=== PATIENT | female | born 1970 | race African-American/Black ===

== ENCOUNTER 2017-05-09 10:38 | Inpatient (IN) | payer OTHER ==
[2017-05-09 11:14] VITALS: BMI 16.5
--- NOTE | 2017-05-09 12:40 | HP ---
COWS - Scale Resting Pulse: 0= [place] 80 or Below Sweatin=Flushed/Facial Moisture Restless Observation: 3= Extraneous Movement Pupil Size: 2= Moderately Dilated Bone or Joint Aches: 2= Severe Diffuse Aches Runny Nose/ Eye Tearin= Runny Nose/Eyes GI Upset > 30mins: 3= Vomiting/Diarrhea Tremor Observation: 2= Slight Tremor Visible Yawning Observation: 2= >3x During Session Anxiety or Irritability: 2=Irritable/Anxious Goose Flesh Skin: 0=Smooth Skin COWS Score: 20 Admission ROS S - HPI Chief Complaint: I AM HERE TO STOP USING HEROIN AND COCAINE Allergies/Adverse Reactions: Allergies Allergy/AdvReac Type Severity Reaction Status Date / Time No Known Allergies Allergy Verified 05/09/17 11:53 History of Present Illness: THIS 47 YEARS OLD FEMALE WITH HEROIN AMD COCAINE DEPENDENCE,SEEKING DETOX,LAST TREATMENT 05/13/16 TO 05/14/16 WEIGHT LOSS ANXIETY,DEPRESSION,INSOMNIA LONGEST SOBRIETY 3 YEARS NICOTINE DEPENDENCE Exam Limitations: No Limitations - Ebola screening Have you traveled outside of the country in the last 21 days: No Have you had contact with anyone from an Ebola affected area: No Have you been sick,other than usual withdrawal symptoms: No Do you have a fever: No - Review of Systems Constitutional: Chills, Loss of Appetite, Malaise, Night Sweats, Changes in sleep, Weakness, Unintentional Wgt. Loss EENT: reports: Tearing, Nose Congestion Respiratory: reports: Other (ASTHMA) Cardiac: reports: No Symptoms Reported GI: reports: Diarrhea, Nausea, Vomiting, Abdominal cramping : reports: No Symptoms Reported Musculoskeletal: reports: Back Pain, Joint Pain, Muscle Pain, Neck Pain Integumentary: reports: Dryness Neuro: reports: Headache, Tremors Endocrine: reports: No Symptoms Reported Hematology: reports: No Symptoms Reported Psychiatric: reports: No Sypmtoms Reported, Judgement Intact, Mood/Affect Appropiate, Anxious (INSOMNIA), Depressed Patient History - Patient Medical History Hx Anemia: Yes (feso4) Hx Asthma: Yes (Pt is on MDI) Hx Chronic Obstructive Pulmonary Disease (COPD): No Hx Cancer: No Hx Cardiac Disorders: Yes (weak heart) Hx Congestive Heart Failure: No Hx Hypertension: Yes Hx Hypercholesterolemia: Yes Hx Pacemaker: No HX Cerebrovascular Accident: Yes (2008 2nd head trauma ) Hx Seizures: Yes (seizure disorder last seizure was 2016) Hx Dementia: No Hx Diabetes: No Hx Gastrointestinal Disorders: No Hx Genitourinary Disorders: No Hx Sexually Transmitted Disorders: No Hx Renal Disease (ESRD): No Hx Thyroid Disease: No Hx Human Immunodeficiency Virus (HIV): No Hx Hepatitis C: No Hx Depression: Yes (ANXIETY) Hx Suicide Attempt: Yes (CUT WRIST) Hx Bipolar Disorder: Yes Hx Schizophrenia: No Other Medical History: NO SUICIDAL,NO HOMICIDAL - Patient Surgical History Past Surgical History: No Hx Neurologic Surgery: No Hx Cataract Extraction: No Hx Cardiac Surgery: No Hx Lung Surgery: No Hx Breast Surgery: No Hx Breast Biopsy: No Hx Abdominal Surgery: No Hx Appendectomy: No Hx Cholecystectomy: No Hx Genitourinary Surgery: No Hx Section: Yes (X 2,LAST 8 YEARS) Hx Orthopedic Surgery: No Anesthesia Reaction: No - PPD History Previous Implant?: Yes Documented Results: Negative w/proof Date: 06/03/16 PPD to be Administered?: Yes - Reproductive History Patient is a Female of Child Bearing Age (11 -55 yrs old): Yes Last Menstrual Period: 10/13/16 Patient : No - Smoking Cessation Smoking history: Current every day smoker Have you smoked in the past 12 months: Yes Aproximately how many cigarettes per day: 10 Cigars Per Day: 0 Hx Chewing Tobacco Use: No Initiated information on smoking cessation: Yes 'Breaking Loose' booklet given: 05/09/17 - Substance & Tx. History Hx Alcohol Use: No Hx Substance Use: Yes Substance Use Type: Cocaine, Heroin Hx Substance Use Treatment: Yes (05/13/16 TO 05/14/16 [facility] NOT COMPLETED) - Substances Abused Heroin Route: Inhalation Frequency: Daily Amount used: 10 bags Age of first use: 17 Date of Last Use: 05/09/17 Cocaine Route: Smoking Frequency: 1-2 times per week Amount used: 50$ Age of first use: 24 Date of Last Use: 05/08/17 Family Disease History - Family Disease History Family Disease History: Diabetes: Mother (ALCOHOL), Other: Father (ALCOHL, ) Admission Physical Exam BHS - Vital Signs Vital Signs: Vital Signs - 24 hr 05/09/17 11:10 Temperature 96 F L Pulse Rate 70 Respiratory 20 Rate Blood Pressure 117/70 - Physical General Appearance: Yes: Moderate Distress, Severe Distress, Alcohol on Breath, Intoxicated, Tremorous, Irritable, Sweating HEENTM: Yes: Normal ENT Inspection, [place], Pharynx Normal Respiratory: Yes: Lungs Clear, Normal Breath Sounds, No Respiratory Distress Neck: Yes: Within Normal Limits, No masses,lesions,Nodules, Supple Breast: Yes: Breast Exam Deferred Cardiology: Yes: Within Normal Limits, Regular Rhythm, Regular Rate, S1, S2 Abdominal: Yes: Within Normal Limits, Normal Bowel Sounds, Non Tender, Flat, Soft Genitourinary: Yes: Within Normal Limits Back: Yes: Within Normal Limits, Normal Inspection, Muscle Spasm Musculoskeletal: Yes: full range of Motion, Back pain, Joint Stiffness, Muscle Pain Extremities: Yes: Tremors Neurological: Yes: Within Normal Limits, annealer II-XII NML intact, Fully Oriented, Alert, Motor Strength 5/5 Integumentary: Yes: Dry Lymphatic: Yes: Within Normal Limits - Diagnostic (1) Asthma Current Visit: No Status: Chronic Qualifiers: Asthma severity: mild intermittent (2) Cocaine abuse Current Visit: No Status: Chronic (3) Nicotine dependence Current Visit: No Status: Chronic (4) Opioid dependence with withdrawal Current Visit: No Status: Chronic (5) Bipolar disorder Current Visit: No Status: Suspected Comment: Historical diagnosis. (6) Weight loss Current Visit: Yes Status: Acute (7) Seizure Current Visit: Yes Status: Acute (8) Old cerebrovascular accident (CVA) without late effect Current Visit: Yes Status: Acute Cleared for Admission [facility] - Detox or Rehab [facility] Level of Care: Medically Managed Detox Regimen/Protocol: Methadone [facility] Breath Alcohol Content Breath Alcohol Content: 0 Urine Pregancy Test - Result Urine Test Results: Negative- NO Line Present Urine Drug Screen - Results Drug Screen Negative: No Urine Drug Screen Results: JEANIE-Cocaine, OPI-Opiates
[2017-05-09] MEDS ORDERED: guaiFENesin/D-METHORPHAN HB 10 ML UNIT-DOSE CUPS PO PRN (12:55)
[2017-05-09] MEDS ORDERED: MAGNESIUM CITRATE 300 ML BOTTLE PO PRN (12:55)
[2017-05-09] MEDS ORDERED: MENTHOL/PHENOL 1 EACH UD MM PRN (12:55)
[2017-05-09] MEDS ORDERED: LOPERAMIDE HCL 2 MG CAPSULE PO PRN (12:55)
[2017-05-09] MEDS ORDERED: hydrOXYzine PAMOATE 25 MG CAPSULE (FP) PO PRN (12:55)
[2017-05-09] MEDS ORDERED: MAGNESIUM HYDROX 2400MG/30ML ORAL SUSPENSION 30 ML CUP PO PRN (12:55)
[2017-05-09] MEDS ORDERED: MAG HYDROX/AL HYDROX/SIMETH 30 ML UNIT-DOSE CUP PO PRN (12:55)
[2017-05-09] MEDS ORDERED: diazePAM 5 MG TABLET PO PRN (12:55)
[2017-05-09] MEDS ORDERED: P-EPHED 60MG/TRIPROLIDI 2.5MG TABLET PO PRN (12:55)
[2017-05-09] MEDS ORDERED: METHADONE HCL 10 MG TABLET (FOR DETOX USE ONLY) PO ONE ×2 (12:55→23:00)
[2017-05-09] MEDS ORDERED: ALBUTEROL SO4 6.7 GM HFA INHALER IH PRN (12:58)
[2017-05-09] MEDS ORDERED: ONDANSETRON *ODT* 4 MG TABLET SL PRN (14:58)
[2017-05-09] MEDS: FERROUS SO4 325 MG TABLET (FP) PO SCH (17:45)
[2017-05-09 21:22] LABS: URINE APPEARANCE CLOUDY; URINE BILIRUBIN NEGATIVE (NEGATIVE); URINE BLOOD NEGATIVE (NEGATIVE); URINE COLOR AMBER; URINE GLUCOSE (UA) NEGATIVE (NEGATIVE); URINE KETONE NEGATIVE (NEGATIVE); URINE LEUK ESTERASE NEGATIVE (NEGATIVE); URINE NITRITE NEGATIVE (NEGATIVE); URINE PROTEIN 1+ (NEGATIVE)
[2017-05-09 21:49] LABS: URINE BACTERIA FEW /hpf (NONE SEEN); URINE MUCUS MANY; URINE RBC 6 /hpf (0-3); URINE WBC 7 /hpf (3-5)
[2017-05-09] MEDS: levETIRAcetam 250 MG TABLET (FP) PO SCH (22:20)
[2017-05-09] MEDS: diphenhydrAMINE HCL 50 MG CAPSULE PO PRN (22:21)
[2017-05-09] MEDS: THIAMINE HCL 100 MG TABLET (FP) PO SCH (23:14)
[2017-05-10] MEDS: IBUPROFEN 400 MG TABLET (FP) PO PRN ×2 (05:50→22:21)
[2017-05-10] MEDS: FERROUS SO4 325 MG TABLET (FP) PO SCH ×3 (07:46→17:30)
[2017-05-10] MEDS ORDERED: DIVALPROEX NA *ER* EXTEND REL 500 MG TABLET.SA (FP) PO ONE (08:45)
--- NOTE | 2017-05-10 09:45 | CONSULT ---
[facility] Psychiatric Consult - Data Date of interview: 05/10/17 Admission source: [facility] Identifying data: This is 47 years old female with psychiatgric hospitalization history , intoxicated with: Opioids, Cocaine, Xanax, Nicotine, history of Alcohol abuse as welol Substance Abuse History: - Smoking Cessation. Smoking history: Current every day smoker. Have you smoked in the past 12 months: Yes. Aproximately how many cigarettes per day: 10. Cigars Per Day: 0. Hx Chewing Tobacco Use: No. Initiated information on smoking cessation: Yes. 'Breaking Loose' booklet given : 05/09/17. - Substance & Tx. History. Hx Alcohol Use: No. Hx Substance Use: Yes. Substance Use Type: Cocaine, Heroin. Hx Substance Use Treatment: Yes ( TO 05/14/16 [facility] NOT COMPLETED). - Substances Abused. Heroin. Route : Inhalation. Frequency: Daily. Amount used: 10 bags. Age of first use: 17. Date of Last Use: 05/09/17. Cocaine. Route: Smoking. Frequency: 1-2 times per week. Amount used: 50$. Age of first use: 24. Date of Last Use: 05/08/17 Medical History: Old CVA, Seizure history, Weight loss hisatyory, Asthma Hyperliupidemia Psychiatric History: Patient reprots history of Bipolar disorder with most recent psychiatric admission for safety at [facility] on 2014,. reports currently taking: Seroquel 400mg po qhs. Depakote XR 500mg p[oqd Physical/Sexual Abuse/Trauma History: Denies, Unclear Additional Comment: Seroquel 400mg po qhs. Depakote XR 500mg p[oqd Mental Status Exam - Mental Status Exam Alert and Oriented to: Person Cognitive Function: Fair Patient Appearance: Unkempt Mood: Sad Affect: Flat Patient Behavior: Sedated Speech Pattern: Delayed, Excessive Voice Loudness: Normal Thought Process: Circumstantial Thought Disorder: Being Controlled Hallucinations: Denies Suicidal Ideation: Denies Homicidal Ideation: Denies Insight/Judgement: Fair Sleep: Difficulty falling asleep Appetite: Weight loss Muscle strength/Tone: Mild Hypertonicity Gait/Station: Shuffling Additional Comments: Seroquel 400mg po qhs. Depakote XR 500mg p[oqd Psychiatric Findings - Problem List ([place] 1, 2,3) (1) Weight loss Current Visit: Yes Status: Acute (2) Benzodiazepine abuse Current Visit: No Status: Acute (3) Nicotine abuse Current Visit: No Status: Acute (4) Alcohol dependence with uncomplicated withdrawal Current Visit: No Status: Chronic (5) Bipolar 1 disorder Current Visit: No Status: Chronic (6) Cocaine abuse Current Visit: No Status: Chronic (7) Nicotine dependence Current Visit: No Status: Chronic (8) Opioid dependence with withdrawal Current Visit: No Status: Chronic - Initial Treatment Plan Initial Treatment Plan: Seroquel 300mg po qhs. Depakote XR 500mg p[oqd
[2017-05-10] MEDS ORDERED: METHADONE HCL 10 MG TABLET (FOR DETOX USE ONLY) PO ONE (10:00)
[2017-05-10] MEDS ORDERED: ALBUTEROL SO4 2.5/IPRATROPIUM 0.5 INH SOL 3 ML VIAL.NEB. NEB PRN (10:00)
--- NOTE | 2017-05-10 10:03 | PN ---
BHS COWS - Scale Resting Pulse: 0= [place] 80 or Below Sweatin= Chills/Flushing Restless Observation: 3= Extraneous Movement Pupil Size: 1= Pupils >than Normal Bone or Joint Aches: 2= Severe Diffuse Aches Runny Nose/ Eye Tearin= Runny Nose/Eyes GI Upset > 30mins: 2= Nausea/Diarrhea Tremor Observation of Outstretched Hands: 2= Slight Tremor Visible Yawning Observation: 1= 1-2x During Session Anxiety or Irritability: 2=Irritable/Anxious Goose Flesh Skin: 0=Smooth Skin COWS Score: 16 S Progress Note (SOAP) Subjective: ALERT,IRRITABLE,ANXIOUS,INTERRUPTED SLEEP,PAIN IN THE BODY AND BACK,EXPIRATORY WHEEZING Objective: 05/10/17 10:01 Vital Signs Temperature 97.7 F 05/10/17 06:35 Pulse Rate 76 05/10/17 06:35 Respiratory Rate 20 05/10/17 06:35 Blood Pressure 147/88 05/10/17 06:35 O2 Sat by Pulse Oximetry (%) EKG NSR,LVH NO CHEST PAIN,NO SOB,NO DIZZINESS Laboratory Last Values Urine Color Vesta 05/09/17 15:23 Urine Appearance Cloudy 05/09/17 15:23 Urine pH 5.0 (5.0-8.0) 05/09/17 15:23 Urine Protein 1+ (NEGATIVE) H 05/09/17 15:23 Urine Glucose (UA) Negative (NEGATIVE) 05/09/17 15:23 Urine Ketones Negative (NEGATIVE) 05/09/17 15:23 Urine Blood Negative (NEGATIVE) 05/09/17 15:23 Urine Nitrite Negative (NEGATIVE) 05/09/17 15:23 Urine Bilirubin Negative (NEGATIVE) 05/09/17 15:23 Urine Urobilinogen 2.0 mg/dL (0.2-1.0) H 05/09/17 15:23 Urine RBC 6 /hpf (0-3) 05/09/17 15:23 Urine WBC 7 /hpf (3-5) 05/09/17 15:23 Ur Epithelial Cells Many /hpf (FEW) 05/09/17 15:23 Urine Bacteria Few /hpf (NONE SEEN) 05/09/17 15:23 Urine Mucus Many 05/09/17 15:23 LABS PENDING Assessment: 05/10/17 10:03 WITHDRAWAL SYMPTOM Plan: CONTINUE DETOX
[2017-05-10] MEDS: levETIRAcetam 250 MG TABLET (FP) PO SCH ×2 (10:14→22:19)
[2017-05-10] MEDS: ASPIRIN 81 MG CHEWABLE TABLETS PO SCH (10:14)
[2017-05-10] MEDS: PRENATAL VITAMINS W/ FOLIC ACID TABLET (FP) PO SCH (10:15)
[2017-05-10] MEDS: NICOTINE 21 MG/24 HOURS TOPICAL PATCH TD SCH (10:17)
[2017-05-10 10:19] LABS: MCH 32.4 pg (25.7-33.7); MCHC 33.1 g/dl (32.0-36.0); MEAN CELL VOLUME 97.8 fl (80-96); MEAN PLT VOLUME 8.9 fl (7.5-11.1); PLATELET COUNT 161 K/MM3 (134-434); RDW 12.8 % (11.6-15.6); WHITE BLOOD COUNT 2.9 K/mm3 (4.0-10.0)
[2017-05-10 10:22] LABS: ALBUMIN 3.4 g/dl (3.4-5.0); ANION GAP 3 (8-16); CALCIUM 8.6 mg/dL (8.5-10.1); CO2 29 mmol/L (21-32); GLUCOSE,RANDOM 96 mg/dL (74-106); SGOT/AST 36 U/L (15-37); SGPT/ALT 41 U/L (12-78)
[2017-05-10 10:25] LABS: ALK PHOS 76 U/L (45-117); BILIRUBIN,TOTAL 0.3 mg/dL (0.2-1.0); CREATININE 0.8 mg/dL (0.55-1.02); TOT PROT 7.4 g/dl (6.4-8.2)
--- NOTE | 2017-05-10 11:28 | EKG ---
Test Reason : Blood Pressure : / mmHG Vent. Rate : 066 BPM Atrial Rate : 066 BPM P-R Int : 144 ms QRS Dur : 090 ms QT Int : 406 ms P-R-T Axes : 075 081 067 degrees QTc Int : 425 ms NORMAL SINUS RHYTHM VOLTAGE CRITERIA FOR LEFT VENTRICULAR HYPERTROPHY ABNORMAL ECG NO PREVIOUS ECGS AVAILABLE Confirmed by JUSTICE ROTH MD ([id number]) on 05/10/2017 11:27:46 AM Referred By: Confirmed By:JUSTICE ROTH MD
[2017-05-10] MEDS: ACETAMINOPHEN 325 MG TABLET (FP) PO PRN ×2 (17:31→20:35)
[2017-05-10] MEDS: THIAMINE HCL 100 MG TABLET (FP) PO SCH (22:19)
[2017-05-10] MEDS: QUEtiapine FUMARATE 300 MG TABLET PO SCH (22:20)
[2017-05-11] MEDS: FERROUS SO4 325 MG TABLET (FP) PO SCH ×3 (07:38→18:00)
--- NOTE | 2017-05-11 09:48 | PN ---
BHS COWS - Scale Resting Pulse: 1= [place] 81-100 Sweatin= Chills/Flushing Restless Observation: 1= Difficult to Sit Still Pupil Size: 1= Pupils >than Normal Bone or Joint Aches: 1= Mild Discomfort Runny Nose/ Eye Tearin= Nasal Congestion GI Upset > 30mins: 2= Nausea/Diarrhea Tremor Observation of Outstretched Hands: 1= Tremor [place], Not Seen Yawning Observation: 1= 1-2x During Session Anxiety or Irritability: 2=Irritable/Anxious Goose Flesh Skin: 3=Piloe[place] COWS Score: 15 S Progress Note (SOAP) Subjective: nausea, sweats, interrupted sleep, anxiety, tremors, cachexia Objective: 05/11/17 09:47 Vital Signs - 24 hr 05/10/17 05/10/17 05/10/17 10:00 15:01 18:09 Temperature 98.1 F 97.9 F 97.9 F Pulse Rate 75 80 69 Respiratory 20 18 20 Rate Blood Pressure 125/78 145/80 129/70 05/10/17 05/11/17 05/11/17 23:15 00:30 06:39 Temperature 98.1 F 97.3 F L Pulse Rate 80 84 Respiratory 18 18 18 Rate Blood Pressure 118/89 108/75 Laboratory Tests 05/09/17 05/10/17 05/10/17 15:23 07:50 07:50 WBC 2.9 L RBC 3.40 L Hgb 11.0 D Hct 33.2 MCV 97.8 H MCH 32.4 MCHC 33.1 RDW 12.8 Plt Count 161 D MPV 8.9 Sodium 139 Potassium 3.9 Chloride 107 Carbon Dioxide 29 Anion Gap 3 L BUN 24 H D Creatinine 0.8 Creat Clearance w eGFR > 60 Random Glucose 96 D Calcium 8.6 Total Bilirubin 0.3 D AST 36 D ALT 41 Alkaline Phosphatase 76 D Total Protein 7.4 Albumin 3.4 Urine Color Vesta Urine Appearance Cloudy Urine pH 5.0 Ur Specific [place] >= 1.030 H Urine Protein 1+ H Urine Glucose (UA) Negative Urine Ketones Negative Urine Blood Negative Urine Nitrite Negative Urine Bilirubin Negative Urine Urobilinogen 2.0 H Urine RBC 6 Urine WBC 7 Ur Epithelial Cells Many Urine Bacteria Few Urine Mucus Many RPR Titer 05/10/17 07:50 WBC RBC Hgb Hct MCV MCH MCHC RDW Plt Count MPV Sodium Potassium Chloride Carbon Dioxide Anion Gap BUN Creatinine Creat Clearance w eGFR Random Glucose Calcium Total Bilirubin AST ALT Alkaline Phosphatase Total Protein Albumin Urine Color Urine Appearance Urine pH Ur Specific [place] Urine Protein Urine Glucose (UA) Urine Ketones Urine Blood Urine Nitrite Urine Bilirubin Urine Urobilinogen Urine RBC Urine WBC Ur Epithelial Cells Urine Bacteria Urine Mucus RPR Titer Nonreactive Assessment: 05/11/17 09:47 withdrawal sx Plan: cont detox, fluids, ensure, encoruage ambualtion
[2017-05-11] MEDS ORDERED: METHADONE HCL 5 MG TABLET (FOR DETOX USE ONLY) PO ONE (10:00)
[2017-05-11] MEDS: PRENATAL VITAMINS W/ FOLIC ACID TABLET (FP) PO SCH (10:34)
[2017-05-11] MEDS: ASPIRIN 81 MG CHEWABLE TABLETS PO SCH (10:34)
[2017-05-11] MEDS: levETIRAcetam 250 MG TABLET (FP) PO SCH ×2 (10:34→22:08)
[2017-05-11] MEDS: NICOTINE 21 MG/24 HOURS TOPICAL PATCH TD SCH (10:35)
[2017-05-11] MEDS: IBUPROFEN 400 MG TABLET (FP) PO PRN (19:24)
[2017-05-11] MEDS: THIAMINE HCL 100 MG TABLET (FP) PO SCH (22:08)
[2017-05-11] MEDS: QUEtiapine FUMARATE 300 MG TABLET PO SCH (22:09)
[2017-05-12] MEDS: FERROUS SO4 325 MG TABLET (FP) PO SCH ×3 (07:20→17:55)
[2017-05-12] MEDS ORDERED: METHADONE HCL 5 MG TABLET (FOR DETOX USE ONLY) PO ONE (10:00)
[2017-05-12] MEDS: PRENATAL VITAMINS W/ FOLIC ACID TABLET (FP) PO SCH (10:39)
[2017-05-12] MEDS: ASPIRIN 81 MG CHEWABLE TABLETS PO SCH (10:39)
[2017-05-12] MEDS: NICOTINE 21 MG/24 HOURS TOPICAL PATCH TD SCH (10:40)
[2017-05-12] MEDS: levETIRAcetam 250 MG TABLET (FP) PO SCH ×2 (10:40→22:03)
--- NOTE | 2017-05-12 11:03 | PN ---
BHS Progress Note (SOAP) Subjective: ALERT,IRRITABLE,ANXIOUS,INTERRUPTED SLEEP,PAIN IN THE BODY AND BACK Objective: 05/12/17 11:02 Vital Signs Temperature 98.5 F 05/12/17 10:35 Pulse Rate 85 05/12/17 10:35 Respiratory Rate 18 05/12/17 10:35 Blood Pressure 120/71 05/12/17 10:35 O2 Sat by Pulse Oximetry (%) Assessment: 05/12/17 11:02 WITHDRAWAL SYMPTOM Plan: CONTINUE DETOX
[2017-05-12] MEDS: QUEtiapine FUMARATE 300 MG TABLET PO SCH (22:03)
[2017-05-12] MEDS: THIAMINE HCL 100 MG TABLET (FP) PO SCH (22:03)
[2017-05-13] MEDS: FERROUS SO4 325 MG TABLET (FP) PO SCH ×3 (07:38→18:15)
[2017-05-13] MEDS ORDERED: METHADONE HCL 10 MG TABLET (FOR DETOX USE ONLY) PO ONE (10:00)
--- NOTE | 2017-05-13 10:33 | PN ---
S Progress Note (SOAP) Subjective: ALERT,IRRITABLE,ANXIOUS,INTERRUPTED SLEEP, Objective: 05/13/17 10:32 Vital Signs Temperature 96.8 F L 05/13/17 06:25 Pulse Rate 88 05/13/17 06:25 Respiratory Rate 16 05/13/17 06:25 Blood Pressure 107/69 05/13/17 06:25 O2 Sat by Pulse Oximetry (%) Assessment: 05/13/17 10:33 WITHDRAWAL SYMPTOM Plan: CONTINUE DETOX,DISCHARGE IN AM
[2017-05-13] MEDS: levETIRAcetam 250 MG TABLET (FP) PO SCH ×2 (10:36→22:26)
[2017-05-13] MEDS: NICOTINE 21 MG/24 HOURS TOPICAL PATCH TD SCH (10:36)
[2017-05-13] MEDS: PRENATAL VITAMINS W/ FOLIC ACID TABLET (FP) PO SCH (10:36)
[2017-05-13] MEDS: ASPIRIN 81 MG CHEWABLE TABLETS PO SCH (10:36)
[2017-05-13] MEDS: QUEtiapine FUMARATE 300 MG TABLET PO SCH (22:27)
[2017-05-13] MEDS: diphenhydrAMINE HCL 50 MG CAPSULE PO PRN (22:27)
[2017-05-13] MEDS: THIAMINE HCL 100 MG TABLET (FP) PO SCH (22:27)
[2017-05-14] MEDS ORDERED: METHADONE HCL 5 MG TABLET (FOR DETOX USE ONLY) PO ONE (06:00)
[2017-05-14 06:20] VITALS: BP 117/65; PULSE 82; TEMP 97.9
[2017-05-14] MEDS: FERROUS SO4 325 MG TABLET (FP) PO SCH (07:08)
--- NOTE | 2017-05-14 08:19 | DS ---
[facility] Detox Discharge Summary Admission Date: 05/09/17 Discharge Date: 05/14/17 - History Present History: Cocaine Dependence, Opioid Dependence Additional Comments: follow up with after care program as arrangement Pertinent Past History: asthma weight loss seizure old cva bipolar disorder - Physical Exam Results Vital Signs: Vital Signs Temperature 97.9 F 05/14/17 06:00 Pulse Rate 82 05/14/17 06:00 Respiratory Rate 16 05/14/17 06:00 Blood Pressure 117/65 05/14/17 06:00 O2 Sat by Pulse Oximetry (%) - Treatment Hospital Course: Detox Protocol Followed, Detoxed Safely, Responded well, Discharged Condition Good Patient has Accepted a Rehab Referral to: declined - Medication Discharge Medications: Ambulatory Orders Clonidine HCl [Catapres] 0.3 mg PO BID 05/13/16 Folic Acid - 1 mg PO DAILY 05/13/16 Multivitamin [Poly-Vitamin] 1 each PO DAILY 05/13/16 Quetiapine Fumarate [Seroquel -] 400 mg PO HS 05/13/16 Thiamine Mononitrate [Vitamin B-1] 100 mg PO DAILY 05/13/16 Divalproex [Depakote -] 500 mg PO DAILY #30 tablet.ec 06/04/16 Divalproex Sodium [Depakote ER] 500 mg PO AM #30 tab.er.24h 05/10/17 Quetiapine Fumarate [Seroquel] 300 mg PO HS #30 tablet 05/10/17 Albuterol Sulfate Inhaler - [Ventolin HFA Inhaler -] 2 inh IH Q4H PRN #1 inhaler 05/14/17 Aspirin [ASA -] 81 mg PO DAILY #30 tab.chew 05/14/17 Ferrous Sulfate [Feosol] 325 mg PO TIDCM #90 ud 05/14/17 Levetiracetam [Keppra -] 750 mg PO BID #180 tablet 05/14/17 - Diagnosis (1) Opioid dependence with withdrawal Current Visit: No Status: Chronic (2) Asthma Current Visit: No Status: Chronic Qualifiers: Asthma severity: mild intermittent (3) Cocaine abuse Current Visit: No Status: Chronic (4) Nicotine dependence Current Visit: No Status: Chronic (5) Bipolar disorder Current Visit: No Status: Suspected (6) Weight loss Current Visit: Yes Status: Acute (7) Seizure Current Visit: Yes Status: Acute (8) Old cerebrovascular accident (CVA) without late effect Current Visit: Yes Status: Acute - AMA Did Patient Leave Against Medical Advice: No
[2017-05-14] MEDS: PRENATAL VITAMINS W/ FOLIC ACID TABLET (FP) PO SCH (10:31)
[2017-05-14] MEDS: NICOTINE 21 MG/24 HOURS TOPICAL PATCH TD SCH (10:31)
[2017-05-14] MEDS: ASPIRIN 81 MG CHEWABLE TABLETS PO SCH (10:32)
[2017-05-14] MEDS: levETIRAcetam 250 MG TABLET (FP) PO SCH (10:32)
== END 2017-05-14 11:12 | disposition home or self-care (01) | DRG 773 ==
LOC: YASAS 10:38 → Y6N 11:47
PROVIDERS: ADMIT Internal Medicine; ATTEND Internal Medicine
PROC: HZ2ZZZZ Detoxification Services for Substance Abuse Treatment (ICD-10-PCS; principal; 2017-05-09)
DX: F11.23 Opioid dependence with withdrawal (principal); F13.10 Sedative, hypnotic or anxiolytic abuse, uncomplicated; F10.230 Alcohol dependence with withdrawal, uncomplicated; F14.10 Cocaine abuse, uncomplicated; F17.210 Nicotine dependence, cigarettes, uncomplicated; F31.81 Bipolar II disorder; D64.9 Anemia, unspecified; J45.909 Unspecified asthma, uncomplicated; R63.4 Abnormal weight loss; Z68.1 Body mass index [BMI] 19.9 or less, adult; Z86.69 Personal history of other diseases of the nervous system and sense organs; Z86.73 Personal history of transient ischemic attack (TIA), and cerebral infarction without residual deficits; Z91.5 Personal history of self-harm
CPT/HCPCS: 36415; 80053; 80164; 81003; 81015; 85027; 86593; 93005; 93010

== ENCOUNTER 2022-05-08 17:44 | Inpatient (IN) | payer OTHER ==
[2022-05-08 22:39] VITALS: BMI 18.5
[2022-05-09] MEDS ORDERED: ACETAMINOPHEN 325 MG TABLET (FP) PO PRN (02:32)
[2022-05-09] MEDS ORDERED: BENZOCAINE/MENTHOL (CHLORASEPTIC ) LOZENGE MM PRN (02:32)
[2022-05-09] MEDS ORDERED: LOPERAMIDE HCL 2 MG CAPSULE PO PRN (02:32)
[2022-05-09] MEDS ORDERED: NICOTINE POLACRILEX 2 MG GUM BUC PRN (02:32)
[2022-05-09] MEDS ORDERED: ONDANSETRON *ODT* 4 MG TABLET SL PRN (02:32)
[2022-05-09] MEDS ORDERED: NALOXONE HCL (KLOXXADO) 8 MG SPRAY NS PRN (02:32)
[2022-05-09] MEDS ORDERED: IBUPROFEN 400 MG TABLET (FP) PO PRN (02:32)
[2022-05-09] MEDS ORDERED: MAGNESIUM CITRATE 300 ML BOTTLE PO PRN (02:32)
[2022-05-09] MEDS ORDERED: MAG HYDROX/AL HYDROX/SIMETH 30 ML UNIT-DOSE CUP PO PRN (02:32)
[2022-05-09] MEDS ORDERED: BISMUTH SUBSALICYLATE 524 MG/30 ML PO PRN (02:32)
[2022-05-09] MEDS ORDERED: DICYCLOMINE HCL 10 MG CAPSULE PO PRN (02:32)
[2022-05-09] MEDS ORDERED: MAGNESIUM HYDROX 2400MG/30ML ORAL SUSPENSION 30 ML CUP PO PRN (02:32)
[2022-05-09] MEDS: IBUPROFEN 600 MG TABLET (FP) PO PRN ×2 (03:57→22:33)
[2022-05-09] MEDS: METHOCARBAMOL 500 MG TABLET PO PRN ×2 (03:59→22:33)
[2022-05-09] MEDS: methaDONE HCL 40 MG DISPERSABLE TABLET PO SCH (11:13)
[2022-05-09] MEDS: PRENATAL VITAMINS W/ FOLIC ACID TABLET (FP) PO SCH (11:13)
[2022-05-09] MEDS: NICOTINE 14 MG/24 HOURS TOPICAL PATCH TD SCH (11:14)
[2022-05-09] MEDS ORDERED: FLU VACC QS2022-23(6MOS UP)/PF 60 MCG/0.5 ML SYRINGE IM ONE (12:51)
[2022-05-09] MEDS: THIAMINE HCL 100 MG TABLET (FP) PO SCH (22:31)
[2022-05-09] MEDS: MELATONIN 5 MG TABLETS PO SCH (22:32)
[2022-05-10] MEDS: methaDONE HCL 40 MG DISPERSABLE TABLET PO SCH (06:00)
[2022-05-10] MEDS ORDERED: LORazepam 1 MG TABLET PO PRN (11:01)
[2022-05-10] MEDS: PRENATAL VITAMINS W/ FOLIC ACID TABLET (FP) PO SCH (11:55)
[2022-05-10] MEDS: NICOTINE 14 MG/24 HOURS TOPICAL PATCH TD SCH (11:55)
[2022-05-10] MEDS: LORazepam 2 MG TABLET PO SCH ×3 (11:56→22:20)
[2022-05-10 13:27] LABS: HEMATOCRIT 23.9 % (32.4-45.2); HEMOGLOBIN 8.2 GM/dL (10.7-15.3); MCH 34.4 pg (25.7-33.7); MCHC 34.3 g/dl (32.0-36.0); MEAN CELL VOLUME 100.3 fl (80-96); PLATELET COUNT 93 10^3/uL (134-434); RBC 2.38 M/mm3 (3.60-5.2); RDW 14.2 % (11.6-15.6)
[2022-05-10 13:32] LABS: ALBUMIN 2.8 g/dl (3.4-5.0); BLOOD UREA NITROGEN 22.2 mg/dL (7-18)
[2022-05-10 13:35] LABS: CREATININE 0.9 mg/dL (0.55-1.3)
[2022-05-10 13:36] LABS: BILIRUBIN,TOTAL 0.2 mg/dL (0.2-1); TOT PROT 6.8 g/dl (6.4-8.2)
[2022-05-10] MEDS: ACETAMINOPHEN 325 MG TABLET (FP) PO PRN (17:45)
[2022-05-10] MEDS: CALCIUM CARBONATE 650 MG TABLET PO SCH (22:20)
[2022-05-10] MEDS: THIAMINE HCL 100 MG TABLET (FP) PO SCH (22:20)
[2022-05-10] MEDS: MELATONIN 5 MG TABLETS PO SCH (22:21)
[2022-05-10] MEDS: METHOCARBAMOL 500 MG TABLET PO PRN (22:21)
[2022-05-11] MEDS: LORazepam 2 MG TABLET PO SCH ×4 (05:14→22:58)
[2022-05-11] MEDS: METHOCARBAMOL 500 MG TABLET PO PRN (06:08)
[2022-05-11] MEDS ORDERED: methaDONE HCL 10 MG TABLET PO SCH (07:52)
[2022-05-11] MEDS: CALCIUM CARBONATE 650 MG TABLET PO SCH ×2 (09:43→22:59)
[2022-05-11] MEDS: PRENATAL VITAMINS W/ FOLIC ACID TABLET (FP) PO SCH (09:43)
[2022-05-11] MEDS: methaDONE 80 MG, methaDONE 10 MG PO SCH (09:43)
[2022-05-11 10:40] LABS: HEMATOCRIT 26.3 % (32.4-45.2); HEMOGLOBIN 8.8 GM/dL (10.7-15.3); MCH 33.5 pg (25.7-33.7); MCHC 33.6 g/dl (32.0-36.0); MEAN CELL VOLUME 99.8 fl (80-96); MEAN PLT VOLUME 9.9 fl (7.5-11.1); PLATELET COUNT 131 10^3/uL (134-434); RBC 2.63 M/mm3 (3.60-5.2)
[2022-05-11 10:56] LABS: WHITE BLOOD COUNT 1.5 K/mm3 (4.0-10.0)
[2022-05-11] MEDS: NICOTINE 14 MG/24 HOURS TOPICAL PATCH TD SCH (10:57)
[2022-05-11] MEDS ORDERED: ALBUTEROL SO4 HFA INHALER IH PRN (11:09)
[2022-05-11 11:28] LABS: ANISOCYTOSIS 1+; MACROCYTOSIS 1+; PLATELET ESTIMATE DECREASED
[2022-05-11] MEDS: BICTEGRAV/EMTRICIT/TENOFOV (BIKTARVY) 50-200-25 MG TABLET PO SCH (12:13)
[2022-05-11] MEDS: SULFAMETHOXAZOLE/TRIMETHOPRIM 800MG/160MG D.S. TABLET PO SCH (12:13)
[2022-05-11] MEDS: FERROUS SO4 325 MG TABLET (FP) PO SCH ×2 (12:13→18:05)
[2022-05-11] MEDS: MELATONIN 5 MG TABLETS PO SCH (22:57)
[2022-05-11] MEDS: FAMOTIDINE 20 MG TABLET PO SCH (22:57)
[2022-05-11] MEDS: THIAMINE HCL 100 MG TABLET (FP) PO SCH (22:58)
[2022-05-11] MEDS: IBUPROFEN 600 MG TABLET (FP) PO PRN (23:37)
[2022-05-12] MEDS: methaDONE 80 MG, methaDONE 10 MG PO SCH (05:28)
[2022-05-12] MEDS: LORazepam 1 MG TABLET PO SCH ×4 (05:28→22:05)
[2022-05-12] MEDS: FERROUS SO4 325 MG TABLET (FP) PO SCH ×3 (07:22→18:18)
[2022-05-12] MEDS: NICOTINE 14 MG/24 HOURS TOPICAL PATCH TD SCH (10:59)
[2022-05-12] MEDS: PRENATAL VITAMINS W/ FOLIC ACID TABLET (FP) PO SCH (10:59)
[2022-05-12] MEDS: SULFAMETHOXAZOLE/TRIMETHOPRIM 800MG/160MG D.S. TABLET PO SCH (11:00)
[2022-05-12] MEDS: ASPIRIN 81 MG CHEWABLE TABLETS PO SCH (11:00)
[2022-05-12] MEDS: BICTEGRAV/EMTRICIT/TENOFOV (BIKTARVY) 50-200-25 MG TABLET PO SCH (11:00)
[2022-05-12] MEDS: CALCIUM CARBONATE 650 MG TABLET PO SCH ×2 (11:01→22:05)
[2022-05-12] MEDS: FAMOTIDINE 20 MG TABLET PO SCH (22:05)
[2022-05-12] MEDS: MELATONIN 5 MG TABLETS PO SCH (22:05)
[2022-05-12] MEDS: THIAMINE HCL 100 MG TABLET (FP) PO SCH (22:05)
[2022-05-12] MEDS: IBUPROFEN 600 MG TABLET (FP) PO PRN (22:41)
[2022-05-12] MEDS: METHOCARBAMOL 500 MG TABLET PO PRN (22:41)
[2022-05-13] MEDS ORDERED: LORazepam 0.5 MG TABLET PO PRN
[2022-05-13] MEDS: LORazepam 0.5 MG TABLET PO SCH ×4 (05:19→22:08)
[2022-05-13] MEDS: methaDONE 80 MG, methaDONE 10 MG PO SCH (05:22)
[2022-05-13] MEDS: ACETAMINOPHEN 325 MG TABLET (FP) PO PRN ×2 (05:49→18:44)
[2022-05-13] MEDS: FERROUS SO4 325 MG TABLET (FP) PO SCH ×3 (07:07→18:41)
[2022-05-13] MEDS: NICOTINE 14 MG/24 HOURS TOPICAL PATCH TD SCH (10:20)
[2022-05-13] MEDS: PRENATAL VITAMINS W/ FOLIC ACID TABLET (FP) PO SCH (10:20)
[2022-05-13] MEDS: CALCIUM CARBONATE 650 MG TABLET PO SCH ×2 (10:20→22:09)
[2022-05-13] MEDS: SULFAMETHOXAZOLE/TRIMETHOPRIM 800MG/160MG D.S. TABLET PO SCH (10:20)
[2022-05-13] MEDS: BICTEGRAV/EMTRICIT/TENOFOV (BIKTARVY) 50-200-25 MG TABLET PO SCH (10:20)
[2022-05-13] MEDS: ASPIRIN 81 MG CHEWABLE TABLETS PO SCH (10:21)
[2022-05-13] MEDS: IBUPROFEN 600 MG TABLET (FP) PO PRN (20:44)
[2022-05-13] MEDS: MELATONIN 5 MG TABLETS PO SCH (22:09)
[2022-05-13] MEDS: THIAMINE HCL 100 MG TABLET (FP) PO SCH (22:09)
[2022-05-13] MEDS: FAMOTIDINE 20 MG TABLET PO SCH (22:09)
[2022-05-14] MEDS ORDERED: LORazepam 0.5 MG TABLET PO ONE (05:00)
[2022-05-14] MEDS: methaDONE 80 MG, methaDONE 10 MG PO SCH (05:41)
[2022-05-14] MEDS: IBUPROFEN 600 MG TABLET (FP) PO PRN (05:42)
[2022-05-14] MEDS: METHOCARBAMOL 500 MG TABLET PO PRN (05:42)
[2022-05-14] MEDS: FERROUS SO4 325 MG TABLET (FP) PO SCH (07:03)
[2022-05-14 08:50] VITALS: BP 146/77; PULSE 56; RESP 18; TEMP 97.3
[2022-05-14] MEDS: SULFAMETHOXAZOLE/TRIMETHOPRIM 800MG/160MG D.S. TABLET PO SCH (09:38)
[2022-05-14] MEDS: PRENATAL VITAMINS W/ FOLIC ACID TABLET (FP) PO SCH (09:39)
[2022-05-14] MEDS: BICTEGRAV/EMTRICIT/TENOFOV (BIKTARVY) 50-200-25 MG TABLET PO SCH (09:39)
[2022-05-14] MEDS: ASPIRIN 81 MG CHEWABLE TABLETS PO SCH (09:39)
[2022-05-14] MEDS: CALCIUM CARBONATE 650 MG TABLET PO SCH (09:40)
[2022-05-14] MEDS: NICOTINE 14 MG/24 HOURS TOPICAL PATCH TD SCH (09:45)
== END 2022-05-14 10:39 | disposition home or self-care (01) | DRG 773 ==
LOC: YASAS 17:44 → Y3N 05-09 02:21 → UNDOADMIN 05-09 02:21
PROVIDERS: ADMIT Allergy & Immunology; ATTEND Surgery
PROC: HZ2ZZZZ Detoxification Services for Substance Abuse Treatment (ICD-10-PCS; principal; 2022-05-09)
DX: F11.23 Opioid dependence with withdrawal (principal); F10.230 Alcohol dependence with withdrawal, uncomplicated; F14.20 Cocaine dependence, uncomplicated; F17.210 Nicotine dependence, cigarettes, uncomplicated; F31.9 Bipolar disorder, unspecified; F41.9 Anxiety disorder, unspecified; E83.51 Hypocalcemia; E88.09 Other disorders of plasma-protein metabolism, not elsewhere classified; E78.5 Hyperlipidemia, unspecified; I10 Essential (primary) hypertension; D64.9 Anemia, unspecified; J45.20 Mild intermittent asthma, uncomplicated; R26.9 Unspecified abnormalities of gait and mobility; Z99.89 Dependence on other enabling machines and devices; Z28.310 Unvaccinated for COVID-19; Z28.9 Immunization not carried out for unspecified reason; Z68.1 Body mass index [BMI] 19.9 or less, adult; Z86.19 Personal history of other infectious and parasitic diseases; Z86.73 Personal history of transient ischemic attack (TIA), and cerebral infarction without residual deficits; Z88.0 Allergy status to penicillin
CPT/HCPCS: 36415; 80053; 80177; 85025; 85027; 86593; 86780; 93005; 93010; C9803-CS; G0008; Q2036; U0003; U0005

== ENCOUNTER 2023-02-02 11:04 | Inpatient (IN) | payer OTHER ==
[2023-02-02 12:26] VITALS: BMI 17.5
[2023-02-02] MEDS ORDERED: NALOXONE HCL (KLOXXADO) 8 MG SPRAY NS PRN (13:11)
[2023-02-02] MEDS ORDERED: NALOXONE HCL 0.4 MG/ML VIAL IM PRN (13:11)
[2023-02-02] MEDS ORDERED: MAGNESIUM HYDROX 2400MG/30ML ORAL SUSPENSION 30 ML CUP PO PRN (13:11)
[2023-02-02] MEDS ORDERED: IBUPROFEN 400 MG TABLET (FP) PO PRN (13:11)
[2023-02-02] MEDS ORDERED: ACETAMINOPHEN 325 MG TABLET (FP) PO PRN (13:11)
[2023-02-02] MEDS ORDERED: DICYCLOMINE HCL 10 MG CAPSULE PO PRN (13:11)
[2023-02-02] MEDS ORDERED: MAG HYDROX/AL HYDROX/SIMETH 30 ML UNIT-DOSE CUP PO PRN (13:11)
[2023-02-02] MEDS ORDERED: IBUPROFEN 600 MG TABLET (FP) PO PRN (13:11)
[2023-02-02] MEDS ORDERED: hydrOXYzine PAMOATE 25 MG CAPSULE (FP) PO PRN (13:11)
[2023-02-02] MEDS ORDERED: BENZONATATE 200 MG CAPSULE PO PRN (13:11)
[2023-02-02] MEDS ORDERED: POLYETHYLENE GLYCOL (HEALTHYLAX) 3350 17 GM PACKET PO PRN (13:11)
[2023-02-02] MEDS ORDERED: BISMUTH SUBSALICYLATE 524 MG/30 ML PO PRN (13:11)
[2023-02-02] MEDS ORDERED: guaiFENesin 600 MG TABLET.ER (FP) PO PRN (13:11)
[2023-02-02] MEDS ORDERED: LOPERAMIDE HCL 2 MG CAPSULE PO PRN (13:11)
[2023-02-02] MEDS ORDERED: ONDANSETRON *ODT* 4 MG TABLET SL PRN (13:11)
[2023-02-02] MEDS ORDERED: BUPRENORPHINE HCL 150 MCG, BUPRENORPHINE HCL 75 MCG BC PRN (13:11)
[2023-02-02] MEDS ORDERED: BENZOCAINE/MENTHOL (CHLORASEPTIC ) LOZENGE MM PRN (13:11)
[2023-02-02] MEDS ORDERED: diazePAM 5 MG TABLET PO PRN (13:11)
[2023-02-02] MEDS ORDERED: NICOTINE 10 MG CARTRIDGE (INHALER) IH PRN (13:11)
[2023-02-02] MEDS ORDERED: METHOCARBAMOL 500 MG TABLET PO PRN (13:11)
[2023-02-02] MEDS ORDERED: ALBUTEROL SO4 HFA INHALER IH PRN (13:16)
[2023-02-02] MEDS ORDERED: cloNIDine HCL 0.1 MG TABLET PO ONE (14:15)
[2023-02-02] MEDS ORDERED: BUPRENORPHINE HCL 150 MCG, BUPRENORPHINE HCL 75 MCG BC ONE (14:15)
[2023-02-02] MEDS: NICOTINE 7 MG/24 HOURS TOPICAL PATCH TD SCH (15:58)
[2023-02-02] MEDS: PRENATAL VITAMINS W/ FOLIC ACID TABLET (FP) PO SCH (15:58)
[2023-02-02] MEDS ORDERED: BUPRENORPHINE HCL 150 MCG FILM BC ONE (16:04)
[2023-02-02] MEDS ORDERED: NICOTINE 7 MG/24 HOURS TOPICAL PATCH TD ONE (16:05)
[2023-02-02] MEDS ORDERED: BUPRENORPHINE HCL 75 MCG FILM BC ONE (16:05)
[2023-02-02] MEDS ORDERED: PRENATAL VITAMINS W/ FOLIC ACID TABLET (FP) PO ONE (16:05)
[2023-02-02] MEDS: FERROUS SO4 325 MG TABLET (FP) PO SCH (17:04)
[2023-02-02] MEDS ORDERED: cloNIDine HCL 0.1 MG TABLET PO PRN (17:11)
[2023-02-02 17:40] LABS: HEMATOCRIT 23.2 % (32.4-45.2); HEMOGLOBIN 7.8 GM/dL (10.7-15.3); MCH 34.1 pg (25.7-33.7); MCHC 33.6 g/dl (32.0-36.0); MEAN CELL VOLUME 101.4 fl (80-96); MEAN PLT VOLUME 9.7 fl (7.5-11.1); PLATELET COUNT 81 10^3/uL (134-434); RBC 2.29 M/mm3 (3.60-5.2)
[2023-02-02 17:42] LABS: POTASSIUM 4.2 mmol/L (3.5-5.1)
[2023-02-02 17:47] LABS: ALBUMIN 2.3 g/dl (3.4-5.0)
[2023-02-02 17:48] LABS: BLOOD UREA NITROGEN 29.1 mg/dL (7-18)
[2023-02-02 17:50] LABS: WHITE BLOOD COUNT 1.2 K/mm3 (4.0-10.0)
[2023-02-02 17:51] LABS: CREATININE 1.7 mg/dL (0.55-1.3); TOT PROT 7.1 g/dl (6.4-8.2)
[2023-02-02 17:52] LABS: BILIRUBIN,TOTAL 0.2 mg/dL (0.2-1)
[2023-02-02] MEDS ORDERED: MELATONIN 5 MG TABLETS PO SCH (22:00)
[2023-02-02] MEDS: THIAMINE HCL 100 MG TABLET (FP) PO SCH (22:07)
[2023-02-02] MEDS: FAMOTIDINE 20 MG TABLET PO SCH (22:07)
[2023-02-03] MEDS ORDERED: BUPRENORPHINE HCL 150 MCG, BUPRENORPHINE HCL 75 MCG BC PRN
[2023-02-03] MEDS: BUPRENORPHINE HCL 150 MCG, BUPRENORPHINE HCL 75 MCG BC SCH ×2 (05:41→17:29)
[2023-02-03] MEDS: BICTEGRAV/EMTRICIT/TENOFOV (BIKTARVY) 50-200-25 MG TABLET PO SCH (07:11)
[2023-02-03] MEDS ORDERED: SULFAMETHOXAZOLE/TRIMETHOPRIM 800MG/160MG D.S. TABLET PO SCH (10:00)
[2023-02-03] MEDS ORDERED: amLODIPine BESYLATE 10 MG TABLET (FP) PO SCH (10:00)
[2023-02-03] MEDS ORDERED: ASPIRIN 81 MG CHEWABLE TABLETS PO SCH (10:00)
[2023-02-03] MEDS: PRENATAL VITAMINS W/ FOLIC ACID TABLET (FP) PO SCH (10:31)
[2023-02-03] MEDS: NICOTINE 7 MG/24 HOURS TOPICAL PATCH TD SCH (10:33)
[2023-02-03] MEDS: FERROUS SO4 325 MG TABLET (FP) PO SCH ×2 (11:35→17:29)
[2023-02-03 11:43] LABS: POTASSIUM 4.5 mmol/L (3.5-5.1)
[2023-02-03 11:54] LABS: BLOOD UREA NITROGEN 25.6 mg/dL (7-18); CALCIUM 7.7 mg/dL (8.5-10.1); CREATININE 1.7 mg/dL (0.55-1.3)
[2023-02-03] MEDS ORDERED: QUEtiapine FUMARATE 100 MG TABLET (FP) PO SCH (22:00)
[2023-02-03] MEDS: THIAMINE HCL 100 MG TABLET (FP) PO SCH (22:20)
[2023-02-03] MEDS: FAMOTIDINE 20 MG TABLET PO SCH (22:20)
[2023-02-04 02:02] VITALS: PULSE 73
[2023-02-04 03:46] VITALS: RESP 18; TEMP 97.6
[2023-02-04] MEDS ORDERED: BUPRENORPHINE HCL 450 MCG FILM BC SCH (06:00)
[2023-02-04 06:11] VITALS: BP 144/96
[2023-02-04] MEDS: BICTEGRAV/EMTRICIT/TENOFOV (BIKTARVY) 50-200-25 MG TABLET PO SCH (07:18)
[2023-02-05] MEDS ORDERED: BUPRENORPHINE/NALOXONE 4 MG/1 MG FILM PACKET SL SCH (06:00)
[2023-02-06] MEDS ORDERED: BUPRENORPHINE/NALOXONE 8 MG/2 MG FILM PACKET SL ONE (06:00)
== END 2023-02-04 07:21 | disposition home or self-care (01) | DRG 773 ==
LOC: YASAS 11:04 → Y6N 15:32
PROVIDERS: ADMIT Allergy & Immunology; ATTEND Surgery
PROC: HZ2ZZZZ Detoxification Services for Substance Abuse Treatment (ICD-10-PCS; principal; 2023-02-02)
DX: F11.23 Opioid dependence with withdrawal (principal); F10.20 Alcohol dependence, uncomplicated; F14.20 Cocaine dependence, uncomplicated; F13.10 Sedative, hypnotic or anxiolytic abuse, uncomplicated; F19.282 Other psychoactive substance dependence with psychoactive substance-induced sleep disorder; F19.24 Other psychoactive substance dependence with psychoactive substance-induced mood disorder; F39 Unspecified mood [affective] disorder; Z21 Asymptomatic human immunodeficiency virus [HIV] infection status; E78.5 Hyperlipidemia, unspecified; N18.9 Chronic kidney disease, unspecified; I12.9 Hypertensive chronic kidney disease with stage 1 through stage 4 chronic kidney disease, or unspecified chronic kidney disease; J45.909 Unspecified asthma, uncomplicated; R63.4 Abnormal weight loss; Z68.1 Body mass index [BMI] 19.9 or less, adult; Z86.73 Personal history of transient ischemic attack (TIA), and cerebral infarction without residual deficits; Z88.0 Allergy status to penicillin
CPT/HCPCS: 36415; 80053; 80069; 81025; 85027; 86593; 86780; 87635

== ENCOUNTER 2023-06-29 16:36 | Inpatient (IN) | payer OTHER ==
[2023-06-29 18:25] LABS: BASO % 0.4 % (0-2.0); EOS % 0.6 % (0-4.5); HEMATOCRIT 22.9 % (32.4-45.2); HEMOGLOBIN 7.7 GM/dL (10.7-15.3); LYMPH % 9.3 % (8-40); MCH 31.1 pg (25.7-33.7); MCHC 33.8 g/dl (32.0-36.0); MEAN CELL VOLUME 92.2 fl (80-96); MEAN PLT VOLUME 8.9 fl (7.5-11.1); MONO % 17.3 % (3.8-10.2); NEUT % 72.4 % (42.8-82.8); PLATELET COUNT 113 10^3/uL (134-434); RBC 2.49 M/mm3 (3.60-5.2); RDW 14.2 % (11.6-15.6); WHITE BLOOD COUNT 3.2 K/mm3 (4.0-10.0)
[2023-06-29 18:49] LABS: POTASSIUM 4.8 mmol/L (3.5-5.1)
[2023-06-29 18:51] LABS: ALBUMIN 2.2 g/dl (3.4-5.0); BLOOD UREA NITROGEN 54.1 mg/dL (7-18); CALCIUM 7.5 mg/dL (8.5-10.1)
[2023-06-29 18:56] LABS: BILIRUBIN,TOTAL 0.2 mg/dL (0.2-1); TOT PROT 6.8 g/dl (6.4-8.2)
[2023-06-30] MEDS ORDERED: ALBUTEROL SO4 HFA INHALER IH PRN (01:09)
[2023-06-30] MEDS: SODIUM CHLORIDE 1,000 ML IV SCH (01:40)
[2023-06-30 05:55] LABS: EPI CELLS >36 /uL (0-25.1); HYALINE CASTS 1 /uL (0-3.1); PH,URINE 6.5 (5.0-8.0); URINE APPEARANCE CLEAR; URINE BACTERIA 17 /uL (0-1359); URINE BILIRUBIN NEGATIVE (NEGATIVE); URINE COLOR YELLOW; URINE GLUCOSE (UA) NEGATIVE (NEGATIVE); URINE KETONE NEGATIVE (NEGATIVE); URINE LEUK ESTERASE NEGATIVE (NEGATIVE); URINE NITRITE NEGATIVE (NEGATIVE); URINE PROTEIN 3+ (NEGATIVE); URINE RBC 9 /uL (0-23.9); URINE UROBILINOGEN 0.2 mg/dL (0.2-1.0); URINE WBC 8 /uL (0-25.8)
[2023-06-30] MEDS ORDERED: methaDONE HCL 10 MG TABLET PO SCH (06:00)
[2023-06-30] MEDS ORDERED: HEPARIN NA (PORCINE) 5,000 UNITS/ML 1ML VIAL SQ SCH (06:00)
[2023-06-30] MEDS ORDERED: methaDONE HCL 40 MG DISPERSABLE TABLET ONE (06:12)
[2023-06-30] MEDS ORDERED: FERROUS SO4 325 MG TABLET (FP) ONE ×2 (07:28→13:17)
[2023-06-30] MEDS: INSULIN ASPART SLIDING SCALE (NOVOLOG) 1 VIAL SQ SCH ×3 (07:34→17:21)
[2023-06-30] MEDS: FERROUS SO4 325 MG TABLET (FP) PO SCH ×3 (07:34→18:10)
[2023-06-30 08:10] LABS: POTASSIUM 4.7 mmol/L (3.5-5.1)
[2023-06-30 08:12] LABS: BASO % 0.5 % (0-2.0); EOS % 1.5 % (0-4.5); HEMATOCRIT 26.6 % (32.4-45.2); HEMOGLOBIN 8.7 GM/dL (10.7-15.3); LYMPH % 12.9 % (8-40); MCH 30.6 pg (25.7-33.7); MCHC 32.7 g/dl (32.0-36.0); MEAN CELL VOLUME 93.5 fl (80-96); MEAN PLT VOLUME 9.1 fl (7.5-11.1); NEUT % 73.1 % (42.8-82.8); PLATELET COUNT 110 10^3/uL (134-434); RBC 2.85 M/mm3 (3.60-5.2); RDW 14.2 % (11.6-15.6)
[2023-06-30 08:20] LABS: CALCIUM 8.2 mg/dL (8.5-10.1)
[2023-06-30 08:21] LABS: ALBUMIN 2.4 g/dl (3.4-5.0); MAGNESIUM 2.4 mg/dL (1.8-2.4)
[2023-06-30 08:24] LABS: CREATININE 2.4 mg/dL (0.55-1.3); PHOSPHOROUS 3.3 mg/dL (2.5-4.9)
[2023-06-30 08:25] LABS: BILIRUBIN,TOTAL 0.2 mg/dL (0.2-1); TOT PROT 7.7 g/dl (6.4-8.2)
[2023-06-30] MEDS ORDERED: BICTEGRAV/EMTRICIT/TENOFOV (BIKTARVY) 50-200-25 MG TABLET PO SCH (10:00)
[2023-06-30] MEDS: THIAMINE HCL 100 MG TABLET (FP) PO SCH (10:45)
[2023-06-30] MEDS: FOLIC ACID 1 MG TABLET (FP) PO SCH (10:45)
[2023-06-30] MEDS: amLODIPine BESYLATE 10 MG TABLET (FP) PO SCH (10:45)
[2023-06-30] MEDS ORDERED: INSULIN (NOVOLOG) ASPART 100 UNITS/ML 10ML VIAL ONE (13:18)
[2023-06-30] MEDS ORDERED: FAMOTIDINE 10 MG TABLET ONE (19:56)
[2023-06-30] MEDS ORDERED: FAMOTIDINE 20 MG TABLET PO SCH (22:00)
[2023-06-30] MEDS: MELATONIN 5 MG TABLETS PO SCH (22:03)
[2023-06-30] MEDS: FAMOTIDINE 10 MG TABLET PO SCH (22:03)
[2023-07-01] MEDS: SODIUM CHLORIDE 1,000 ML IV SCH ×2 (01:20→22:29)
[2023-07-01] MEDS: INSULIN ASPART SLIDING SCALE (NOVOLOG) 1 VIAL SQ SCH ×3 (06:42→19:07)
[2023-07-01] MEDS: FERROUS SO4 325 MG TABLET (FP) PO SCH ×3 (08:58→18:08)
[2023-07-01 09:09] LABS: BASO % 0.5 % (0-2.0); EOS % 1.9 % (0-4.5); HEMATOCRIT 25.9 % (32.4-45.2); HEMOGLOBIN 8.5 GM/dL (10.7-15.3); LYMPH % 11.2 % (8-40); MCH 30.6 pg (25.7-33.7); MCHC 32.8 g/dl (32.0-36.0); MEAN CELL VOLUME 93.3 fl (80-96); MEAN PLT VOLUME 8.5 fl (7.5-11.1); MONO % 16.4 % (3.8-10.2); PLATELET COUNT 103 10^3/uL (134-434); RBC 2.78 M/mm3 (3.60-5.2); WHITE BLOOD COUNT 2.2 K/mm3 (4.0-10.0)
[2023-07-01 09:12] LABS: INR 1.1 (0.83-1.09); PROTHROMBIN TIME (PATIENT) 12.7 SEC (9.7-13.0)
[2023-07-01] MEDS ORDERED: methaDONE HCL 40 MG DISPERSABLE TABLET PO SCH (09:58)
[2023-07-01] MEDS ORDERED: DARUNAVIR ETHANOLATE 800 MG TAB PO SCH (10:00)
[2023-07-01] MEDS ORDERED: DOLUTEGRAVIR SODIUM 50 MG TABLET (NON-FORMULARY) PO SCH (10:00)
[2023-07-01 10:09] LABS: POTASSIUM 4.6 mmol/L (3.5-5.1)
[2023-07-01 10:11] LABS: CALCIUM 7.6 mg/dL (8.5-10.1)
[2023-07-01 10:12] LABS: BLOOD UREA NITROGEN 36.2 mg/dL (7-18)
[2023-07-01 10:15] LABS: CREATININE 1.9 mg/dL (0.55-1.3)
[2023-07-01 10:17] LABS: TOT PROT 6.8 g/dl (6.4-8.2)
[2023-07-01 10:25] LABS: BILIRUBIN,TOTAL 0.2 mg/dL (0.2-1)
[2023-07-01] MEDS: FOLIC ACID 1 MG TABLET (FP) PO SCH (10:57)
[2023-07-01] MEDS: amLODIPine BESYLATE 10 MG TABLET (FP) PO SCH (10:57)
[2023-07-01] MEDS: THIAMINE HCL 100 MG TABLET (FP) PO SCH (10:57)
[2023-07-01] MEDS: methaDONE HCL 40 MG DISPERSABLE TABLET PO SCH (10:59)
[2023-07-01] MEDS: RITONAVIR 100 MG TABLET PO SCH (11:32)
[2023-07-01] MEDS: DARUNAVIR ETHANOLATE 800 MG TAB PO SCH (11:32)
[2023-07-01] MEDS: DOLUTEGRAVIR SODIUM 50 MG TABLET (NON-FORMULARY) PO SCH (11:33)
[2023-07-01] MEDS: POLYETHYLENE GLYCOL (HEALTHYLAX) 3350 17 GM PACKET PO SCH (21:29)
[2023-07-01] MEDS: FAMOTIDINE 10 MG TABLET PO SCH (21:29)
[2023-07-01] MEDS: MELATONIN 5 MG TABLETS PO SCH (21:29)
[2023-07-01] MEDS: SULFAMETHOXAZOLE/TMP 200MG-40MG/5ML PO SCH (22:26)
[2023-07-02] MEDS: methaDONE HCL 40 MG DISPERSABLE TABLET PO SCH (05:46)
[2023-07-02] MEDS: SODIUM CHLORIDE 1,000 ML IV SCH (06:26)
[2023-07-02] MEDS: INSULIN ASPART SLIDING SCALE (NOVOLOG) 1 VIAL SQ SCH ×3 (06:28→17:21)
[2023-07-02 07:28] LABS: HEMATOCRIT 20.4 % (32.4-45.2); MCHC 33.8 g/dl (32.0-36.0); MEAN CELL VOLUME 91.7 fl (80-96); MEAN PLT VOLUME 8.8 fl (7.5-11.1); PLATELET COUNT 89 10^3/uL (134-434); RBC 2.22 M/mm3 (3.60-5.2)
[2023-07-02 08:10] LABS: CARCINOEMBRYONIC ANTIGEN 11.2 ng/mL (0.0-4.7)
[2023-07-02 08:12] LABS: WHITE BLOOD COUNT 1.3 K/mm3 (4.0-10.0)
[2023-07-02 08:13] LABS: HEMOGLOBIN 6.9 GM/dL (10.7-15.3)
[2023-07-02] MEDS: RITONAVIR 100 MG TABLET PO SCH (08:14)
[2023-07-02] MEDS: FERROUS SO4 325 MG TABLET (FP) PO SCH ×3 (08:14→17:23)
[2023-07-02] MEDS: DARUNAVIR ETHANOLATE 800 MG TAB PO SCH (08:15)
[2023-07-02 09:04] LABS: POTASSIUM 4.6 mmol/L (3.5-5.1)
[2023-07-02 09:10] LABS: BLOOD UREA NITROGEN 34.1 mg/dL (7-18); CALCIUM 7.4 mg/dL (8.5-10.1); MAGNESIUM 1.9 mg/dL (1.8-2.4)
[2023-07-02 09:11] LABS: ALBUMIN 1.8 g/dl (3.4-5.0)
[2023-07-02 09:13] LABS: PHOSPHOROUS 2.3 mg/dL (2.5-4.9)
[2023-07-02 09:14] LABS: BILIRUBIN,TOTAL 0.2 mg/dL (0.2-1); CREATININE 1.9 mg/dL (0.55-1.3)
[2023-07-02] MEDS ORDERED: SODIUM CHLORIDE 1,000 ML IV SCH ×2 (10:45→20:10)
[2023-07-02] MEDS: amLODIPine BESYLATE 10 MG TABLET (FP) PO SCH (10:49)
[2023-07-02] MEDS: THIAMINE HCL 100 MG TABLET (FP) PO SCH (10:49)
[2023-07-02] MEDS: POLYETHYLENE GLYCOL (HEALTHYLAX) 3350 17 GM PACKET PO SCH ×2 (10:49→22:16)
[2023-07-02] MEDS: FOLIC ACID 1 MG TABLET (FP) PO SCH (10:49)
[2023-07-02] MEDS: DOLUTEGRAVIR SODIUM 50 MG TABLET (NON-FORMULARY) PO SCH (10:50)
[2023-07-02] MEDS: SULFAMETHOXAZOLE/TMP 200MG-40MG/5ML PO SCH (10:56)
[2023-07-02 11:02] LABS: ANISOCYTOSIS 0; MACROCYTOSIS 0
[2023-07-02 11:10] LABS: RETICULOCYTES 0.48 % (0.5-1.5)
[2023-07-02] MEDS ORDERED: ATOVAQUONE 750 MG/5 ML (UNIT-DOSE PACKAGING) PO SCH (11:15)
[2023-07-02 11:47] LABS: PLATELET ESTIMATE DECREASED
[2023-07-02 13:21] LABS: HEMATOCRIT 25.7 % (32.4-45.2); HEMOGLOBIN 8.6 GM/dL (10.7-15.3); MCHC 33.4 g/dl (32.0-36.0); MEAN CELL VOLUME 92.6 fl (80-96); MEAN PLT VOLUME 8.6 fl (7.5-11.1); PLATELET COUNT 107 10^3/uL (134-434); RBC 2.78 M/mm3 (3.60-5.2); RDW 14.1 % (11.6-15.6)
[2023-07-02 13:27] LABS: WHITE BLOOD COUNT 1.9 K/mm3 (4.0-10.0)
[2023-07-02] MEDS ORDERED: ALBUTEROL SO4 HFA INHALER IH PRN (20:10)
[2023-07-02] MEDS: FAMOTIDINE 10 MG TABLET PO SCH (22:16)
[2023-07-02] MEDS: MELATONIN 5 MG TABLETS PO SCH (22:16)
[2023-07-03] MEDS: methaDONE HCL 40 MG DISPERSABLE TABLET PO SCH (06:18)
[2023-07-03] MEDS: INSULIN ASPART SLIDING SCALE (NOVOLOG) 1 VIAL SQ SCH ×2 (06:24→11:09)
[2023-07-03] MEDS: FERROUS SO4 325 MG TABLET (FP) PO SCH ×3 (08:44→17:52)
[2023-07-03] MEDS: RITONAVIR 100 MG TABLET PO SCH (08:45)
[2023-07-03] MEDS: ATOVAQUONE 750 MG/5 ML (UNIT-DOSE PACKAGING) PO SCH (08:45)
[2023-07-03] MEDS: DARUNAVIR ETHANOLATE 800 MG TAB PO SCH (08:46)
[2023-07-03 08:50] LABS: BASO % 0.5 % (0-2.0); EOS % 3.6 % (0-4.5); LYMPH % 15.8 % (8-40); MCH 30.9 pg (25.7-33.7); MCHC 33.4 g/dl (32.0-36.0); MEAN CELL VOLUME 92.3 fl (80-96); MONO % 15.9 % (3.8-10.2); NEUT % 64.2 % (42.8-82.8); PLATELET COUNT 100 10^3/uL (134-434); RBC 2.93 M/mm3 (3.60-5.2); RDW 14.9 % (11.6-15.6); WHITE BLOOD COUNT 2.2 K/mm3 (4.0-10.0)
[2023-07-03 09:15] LABS: POTASSIUM 5.1 mmol/L (3.5-5.1)
[2023-07-03 09:19] LABS: ALBUMIN 1.9 g/dl (3.4-5.0); CALCIUM 7.5 mg/dL (8.5-10.1)
[2023-07-03 09:21] LABS: CREATININE 1.8 mg/dL (0.55-1.3)
[2023-07-03 09:22] LABS: BILIRUBIN,TOTAL 0.2 mg/dL (0.2-1)
[2023-07-03 09:23] LABS: TOT PROT 6.4 g/dl (6.4-8.2)
[2023-07-03 09:24] LABS: PHOSPHOROUS 3.3 mg/dL (2.5-4.9)
[2023-07-03] MEDS: FOLIC ACID 1 MG TABLET (FP) PO SCH (09:32)
[2023-07-03] MEDS: amLODIPine BESYLATE 10 MG TABLET (FP) PO SCH (09:32)
[2023-07-03] MEDS: THIAMINE HCL 100 MG TABLET (FP) PO SCH (09:32)
[2023-07-03] MEDS: DOLUTEGRAVIR SODIUM 50 MG TABLET (NON-FORMULARY) PO SCH (09:33)
[2023-07-03] MEDS: POLYETHYLENE GLYCOL (HEALTHYLAX) 3350 17 GM PACKET PO SCH ×2 (09:36→21:24)
[2023-07-03] MEDS: QUEtiapine FUMARATE 100 MG TABLET (FP) PO SCH (21:24)
[2023-07-03] MEDS: MELATONIN 5 MG TABLETS PO SCH (21:24)
[2023-07-03] MEDS: FAMOTIDINE 10 MG TABLET PO SCH (21:25)
[2023-07-04] MEDS: methaDONE HCL 40 MG DISPERSABLE TABLET PO SCH (06:21)
[2023-07-04] MEDS: DARUNAVIR ETHANOLATE 800 MG TAB PO SCH (08:18)
[2023-07-04] MEDS: ATOVAQUONE 750 MG/5 ML (UNIT-DOSE PACKAGING) PO SCH (08:18)
[2023-07-04] MEDS: RITONAVIR 100 MG TABLET PO SCH (08:18)
[2023-07-04] MEDS: FERROUS SO4 325 MG TABLET (FP) PO SCH ×3 (08:18→17:30)
[2023-07-04] MEDS: LACTATED RINGERS SOLUTION 1,000 ML/1,000 ML INFUS.BAG IV SCH (08:41)
[2023-07-04 09:09] LABS: INR 0.98 (0.83-1.09); PROTHROMBIN TIME (PATIENT) 11.4 SEC (9.7-13.0)
[2023-07-04] MEDS: amLODIPine BESYLATE 10 MG TABLET (FP) PO SCH (09:09)
[2023-07-04] MEDS: THIAMINE HCL 100 MG TABLET (FP) PO SCH (09:09)
[2023-07-04] MEDS: FOLIC ACID 1 MG TABLET (FP) PO SCH (09:09)
[2023-07-04] MEDS: POLYETHYLENE GLYCOL (HEALTHYLAX) 3350 17 GM PACKET PO SCH ×2 (09:10→21:42)
[2023-07-04] MEDS: DOLUTEGRAVIR SODIUM 50 MG TABLET (NON-FORMULARY) PO SCH (09:10)
[2023-07-04 09:14] LABS: BASO % 0.6 % (0-2.0); EOS % 4.5 % (0-4.5); HEMATOCRIT 27.6 % (32.4-45.2); HEMOGLOBIN 9.3 GM/dL (10.7-15.3); LYMPH % 14.8 % (8-40); MCH 30.5 pg (25.7-33.7); MCHC 33.7 g/dl (32.0-36.0); MEAN CELL VOLUME 90.5 fl (80-96); MEAN PLT VOLUME 8.6 fl (7.5-11.1); MONO % 15.4 % (3.8-10.2); NEUT % 64.7 % (42.8-82.8); PLATELET COUNT 97 10^3/uL (134-434); RBC 3.04 M/mm3 (3.60-5.2); RDW 15.4 % (11.6-15.6); WHITE BLOOD COUNT 2.1 K/mm3 (4.0-10.0)
[2023-07-04 09:24] LABS: POTASSIUM 5.2 mmol/L (3.5-5.1)
[2023-07-04 09:28] LABS: ALBUMIN 1.9 g/dl (3.4-5.0); BLOOD UREA NITROGEN 37.9 mg/dL (7-18); CALCIUM 8.1 mg/dL (8.5-10.1); MAGNESIUM 2.1 mg/dL (1.8-2.4)
[2023-07-04 09:30] LABS: CREATININE 2.1 mg/dL (0.55-1.3); PHOSPHOROUS 3.1 mg/dL (2.5-4.9)
[2023-07-04 09:33] LABS: BILIRUBIN,TOTAL 0.7 mg/dL (0.2-1); TOT PROT 6.4 g/dl (6.4-8.2)
[2023-07-04] MEDS: FAMOTIDINE 10 MG TABLET PO SCH (21:30)
[2023-07-04] MEDS: HEPARIN NA (PORCINE) 5,000 UNITS/ML 1ML VIAL SQ SCH (21:30)
[2023-07-04] MEDS: MELATONIN 5 MG TABLETS PO SCH (21:30)
[2023-07-04] MEDS: QUEtiapine FUMARATE 100 MG TABLET (FP) PO SCH (21:31)
[2023-07-05] MEDS: methaDONE HCL 40 MG DISPERSABLE TABLET PO SCH (06:02)
[2023-07-05 09:39] LABS: HEMATOCRIT 26.4 % (32.4-45.2); HEMOGLOBIN 8.8 GM/dL (10.7-15.3); MCHC 33.3 g/dl (32.0-36.0); MEAN CELL VOLUME 93.1 fl (80-96); MEAN PLT VOLUME 9.3 fl (7.5-11.1); PLATELET COUNT 85 10^3/uL (134-434); RBC 2.84 M/mm3 (3.60-5.2); RDW 14.5 % (11.6-15.6)
[2023-07-05 09:41] LABS: INR 1.01 (0.83-1.09); PROTHROMBIN TIME (PATIENT) 11.7 SEC (9.7-13.0)
[2023-07-05 09:54] LABS: WHITE BLOOD COUNT 1.5 K/mm3 (4.0-10.0)
[2023-07-05 10:03] LABS: ALBUMIN 1.8 g/dl (3.4-5.0); BLOOD UREA NITROGEN 38.4 mg/dL (7-18)
[2023-07-05 10:04] LABS: CALCIUM 7.8 mg/dL (8.5-10.1); MAGNESIUM 2.1 mg/dL (1.8-2.4)
[2023-07-05 10:06] LABS: CREATININE 2.2 mg/dL (0.55-1.3); PHOSPHOROUS 3.4 mg/dL (2.5-4.9)
[2023-07-05 10:07] LABS: BILIRUBIN,TOTAL 0.2 mg/dL (0.2-1); TOT PROT 6.2 g/dl (6.4-8.2)
[2023-07-05] MEDS: FERROUS SO4 325 MG TABLET (FP) PO SCH ×3 (10:26→18:13)
[2023-07-05] MEDS: amLODIPine BESYLATE 10 MG TABLET (FP) PO SCH (10:27)
[2023-07-05] MEDS: THIAMINE HCL 100 MG TABLET (FP) PO SCH (10:28)
[2023-07-05] MEDS: FOLIC ACID 1 MG TABLET (FP) PO SCH (10:28)
[2023-07-05] MEDS: DARUNAVIR ETHANOLATE 800 MG TAB PO SCH (10:29)
[2023-07-05] MEDS: ATOVAQUONE 750 MG/5 ML (UNIT-DOSE PACKAGING) PO SCH (10:29)
[2023-07-05] MEDS: DOLUTEGRAVIR SODIUM 50 MG TABLET (NON-FORMULARY) PO SCH (10:30)
[2023-07-05] MEDS: POLYETHYLENE GLYCOL (HEALTHYLAX) 3350 17 GM PACKET PO SCH ×2 (10:31→22:18)
[2023-07-05] MEDS: HEPARIN NA (PORCINE) 5,000 UNITS/ML 1ML VIAL SQ SCH ×2 (10:31→22:19)
[2023-07-05] MEDS: RITONAVIR 100 MG TABLET PO SCH (12:24)
[2023-07-05 13:20] LABS: ANISOCYTOSIS 0; MACROCYTOSIS 0
[2023-07-05] MEDS: LACTATED RINGERS SOLUTION 1,000 ML/1,000 ML INFUS.BAG IV SCH (13:52)
[2023-07-05] MEDS: FAMOTIDINE 10 MG TABLET PO SCH (22:18)
[2023-07-05] MEDS: MELATONIN 5 MG TABLETS PO SCH (22:19)
[2023-07-05] MEDS: QUEtiapine FUMARATE 100 MG TABLET (FP) PO SCH (22:21)
[2023-07-06] MEDS: methaDONE HCL 40 MG DISPERSABLE TABLET PO SCH (05:43)
[2023-07-06] MEDS: FERROUS SO4 325 MG TABLET (FP) PO SCH ×3 (08:58→16:51)
[2023-07-06] MEDS: ATOVAQUONE 750 MG/5 ML (UNIT-DOSE PACKAGING) PO SCH (08:59)
[2023-07-06] MEDS: RITONAVIR 100 MG TABLET PO SCH (08:59)
[2023-07-06] MEDS: DARUNAVIR ETHANOLATE 800 MG TAB PO SCH (08:59)
[2023-07-06] MEDS: LACTATED RINGERS SOLUTION 1,000 ML/1,000 ML INFUS.BAG IV SCH (08:59)
[2023-07-06 09:30] LABS: HEMATOCRIT 26.5 % (32.4-45.2); HEMOGLOBIN 9.2 GM/dL (10.7-15.3); MCH 31.3 pg (25.7-33.7); MCHC 34.6 g/dl (32.0-36.0); MEAN CELL VOLUME 90.5 fl (80-96); MEAN PLT VOLUME 9.8 fl (7.5-11.1); PLATELET COUNT 106 10^3/uL (134-434); RBC 2.93 M/mm3 (3.60-5.2); RDW 14.3 % (11.6-15.6)
[2023-07-06 09:41] LABS: WHITE BLOOD COUNT 1.7 K/mm3 (4.0-10.0)
[2023-07-06 09:53] LABS: POTASSIUM 5.7 mmol/L (3.5-5.1)
[2023-07-06] MEDS: amLODIPine BESYLATE 10 MG TABLET (FP) PO SCH (09:57)
[2023-07-06] MEDS: FOLIC ACID 1 MG TABLET (FP) PO SCH (09:59)
[2023-07-06] MEDS: THIAMINE HCL 100 MG TABLET (FP) PO SCH (09:59)
[2023-07-06] MEDS: POLYETHYLENE GLYCOL (HEALTHYLAX) 3350 17 GM PACKET PO SCH ×2 (10:00→21:46)
[2023-07-06] MEDS: HEPARIN NA (PORCINE) 5,000 UNITS/ML 1ML VIAL SQ SCH ×2 (10:00→21:46)
[2023-07-06] MEDS: DOLUTEGRAVIR SODIUM 50 MG TABLET (NON-FORMULARY) PO SCH (10:00)
[2023-07-06 10:05] LABS: BLOOD UREA NITROGEN 38.3 mg/dL (7-18)
[2023-07-06 10:06] LABS: BILIRUBIN,TOTAL 0.3 mg/dL (0.2-1)
[2023-07-06 10:07] LABS: CALCIUM 8.3 mg/dL (8.5-10.1)
[2023-07-06 10:08] LABS: CREATININE 2.1 mg/dL (0.55-1.3); MAGNESIUM 2.4 mg/dL (1.8-2.4)
[2023-07-06 10:15] LABS: ANISOCYTOSIS 1+; MACROCYTOSIS 0
[2023-07-06] MEDS ORDERED: SODIUM ZIRCONIUM CYCLOSILICATE (LOKELMA) 5 GM PACKET PO SCH (11:45)
[2023-07-06] MEDS ORDERED: SODIUM CHLORIDE 0.45% 1,000 ML IV SCH (12:00)
[2023-07-06] MEDS: QUEtiapine FUMARATE 100 MG TABLET (FP) PO SCH (21:46)
[2023-07-06] MEDS: MELATONIN 5 MG TABLETS PO SCH (21:46)
[2023-07-06] MEDS: FAMOTIDINE 10 MG TABLET PO SCH (21:46)
[2023-07-07] MEDS: methaDONE HCL 40 MG DISPERSABLE TABLET PO SCH (06:01)
[2023-07-07 09:40] LABS: BASO % 0.5 % (0-2.0); EOS % 5.1 % (0-4.5); HEMATOCRIT 25.4 % (32.4-45.2); HEMOGLOBIN 8.3 GM/dL (10.7-15.3); MCH 30.1 pg (25.7-33.7); MCHC 32.5 g/dl (32.0-36.0); MEAN CELL VOLUME 92.7 fl (80-96); MEAN PLT VOLUME 9.2 fl (7.5-11.1); MONO % 17.6 % (3.8-10.2); NEUT % 58.8 % (42.8-82.8); PLATELET COUNT 99 10^3/uL (134-434); RBC 2.74 M/mm3 (3.60-5.2)
[2023-07-07] MEDS: THIAMINE HCL 100 MG TABLET (FP) PO SCH (09:47)
[2023-07-07] MEDS: amLODIPine BESYLATE 10 MG TABLET (FP) PO SCH (09:47)
[2023-07-07] MEDS: FOLIC ACID 1 MG TABLET (FP) PO SCH (09:47)
[2023-07-07] MEDS: FERROUS SO4 325 MG TABLET (FP) PO SCH ×3 (09:47→16:32)
[2023-07-07] MEDS: HEPARIN NA (PORCINE) 5,000 UNITS/ML 1ML VIAL SQ SCH ×2 (09:47→21:35)
[2023-07-07] MEDS: POLYETHYLENE GLYCOL (HEALTHYLAX) 3350 17 GM PACKET PO SCH ×2 (09:48→21:35)
[2023-07-07] MEDS: RITONAVIR 100 MG TABLET PO SCH (09:49)
[2023-07-07] MEDS: ATOVAQUONE 750 MG/5 ML (UNIT-DOSE PACKAGING) PO SCH (09:49)
[2023-07-07] MEDS: DOLUTEGRAVIR SODIUM 50 MG TABLET (NON-FORMULARY) PO SCH (09:49)
[2023-07-07] MEDS: DARUNAVIR ETHANOLATE 800 MG TAB PO SCH (09:49)
[2023-07-07 09:51] LABS: WHITE BLOOD COUNT 1.4 K/mm3 (4.0-10.0)
[2023-07-07 10:04] LABS: POTASSIUM 4.6 mmol/L (3.5-5.1)
[2023-07-07 10:32] LABS: BLOOD UREA NITROGEN 31.9 mg/dL (7-18); CALCIUM 7.9 mg/dL (8.5-10.1)
[2023-07-07 10:33] LABS: ALBUMIN 1.9 g/dl (3.4-5.0); MAGNESIUM 2.3 mg/dL (1.8-2.4)
[2023-07-07 10:36] LABS: PHOSPHOROUS 3.9 mg/dL (2.5-4.9)
[2023-07-07 10:37] LABS: BILIRUBIN,TOTAL 0.3 mg/dL (0.2-1); TOT PROT 6.4 g/dl (6.4-8.2)
[2023-07-07 10:39] LABS: ANISOCYTOSIS 1+; MACROCYTOSIS 0; OVALOCYTE 1+
[2023-07-07] MEDS: MELATONIN 5 MG TABLETS PO SCH (21:35)
[2023-07-07] MEDS: QUEtiapine FUMARATE 100 MG TABLET (FP) PO SCH (21:35)
[2023-07-07] MEDS: FAMOTIDINE 10 MG TABLET PO SCH (21:35)
[2023-07-08] MEDS: methaDONE HCL 40 MG DISPERSABLE TABLET PO SCH (05:53)
[2023-07-08 08:32] LABS: BASO % 0.5 % (0-2.0); EOS % 5.1 % (0-4.5); HEMATOCRIT 28.5 % (32.4-45.2); HEMOGLOBIN 9.2 GM/dL (10.7-15.3); LYMPH % 19.1 % (8-40); MCH 30.1 pg (25.7-33.7); MCHC 32.5 g/dl (32.0-36.0); MEAN CELL VOLUME 92.8 fl (80-96); MEAN PLT VOLUME 9.3 fl (7.5-11.1); MONO % 14.2 % (3.8-10.2); NEUT % 61.1 % (42.8-82.8); PLATELET COUNT 121 10^3/uL (134-434); RBC 3.07 M/mm3 (3.60-5.2); RDW 14.1 % (11.6-15.6)
[2023-07-08] MEDS: ATOVAQUONE 750 MG/5 ML (UNIT-DOSE PACKAGING) PO SCH (08:50)
[2023-07-08] MEDS: DARUNAVIR ETHANOLATE 800 MG TAB PO SCH (08:50)
[2023-07-08] MEDS: FERROUS SO4 325 MG TABLET (FP) PO SCH ×3 (08:50→17:25)
[2023-07-08] MEDS: RITONAVIR 100 MG TABLET PO SCH (08:51)
[2023-07-08] MEDS: HEPARIN NA (PORCINE) 5,000 UNITS/ML 1ML VIAL SQ SCH ×2 (09:01→21:50)
[2023-07-08] MEDS: FOLIC ACID 1 MG TABLET (FP) PO SCH (09:01)
[2023-07-08] MEDS: POLYETHYLENE GLYCOL (HEALTHYLAX) 3350 17 GM PACKET PO SCH ×2 (09:02→21:51)
[2023-07-08] MEDS: DOLUTEGRAVIR SODIUM 50 MG TABLET (NON-FORMULARY) PO SCH (09:02)
[2023-07-08] MEDS: THIAMINE HCL 100 MG TABLET (FP) PO SCH (09:02)
[2023-07-08 09:14] LABS: POTASSIUM 4.6 mmol/L (3.5-5.1)
[2023-07-08] MEDS: amLODIPine BESYLATE 10 MG TABLET (FP) PO SCH (09:25)
[2023-07-08 09:29] LABS: ALBUMIN 2.1 g/dl (3.4-5.0); CALCIUM 8.6 mg/dL (8.5-10.1); MAGNESIUM 2.5 mg/dL (1.8-2.4)
[2023-07-08 09:32] LABS: CREATININE 2.1 mg/dL (0.55-1.3)
[2023-07-08 09:33] LABS: BILIRUBIN,TOTAL 0.4 mg/dL (0.2-1); TOT PROT 7.1 g/dl (6.4-8.2)
[2023-07-08] MEDS: MELATONIN 5 MG TABLETS PO SCH (21:48)
[2023-07-08] MEDS: FAMOTIDINE 10 MG TABLET PO SCH (21:48)
[2023-07-08] MEDS: QUEtiapine FUMARATE 100 MG TABLET (FP) PO SCH (21:48)
[2023-07-09] MEDS: methaDONE HCL 40 MG DISPERSABLE TABLET PO SCH (06:18)
[2023-07-09] MEDS: FERROUS SO4 325 MG TABLET (FP) PO SCH ×3 (08:19→16:34)
[2023-07-09] MEDS: DARUNAVIR ETHANOLATE 800 MG TAB PO SCH (08:20)
[2023-07-09] MEDS: ATOVAQUONE 750 MG/5 ML (UNIT-DOSE PACKAGING) PO SCH (08:20)
[2023-07-09] MEDS: RITONAVIR 100 MG TABLET PO SCH (08:20)
[2023-07-09 09:17] LABS: HEMATOCRIT 26.5 % (32.4-45.2); HEMOGLOBIN 8.6 GM/dL (10.7-15.3); MCH 30.1 pg (25.7-33.7); MCHC 32.4 g/dl (32.0-36.0); MEAN CELL VOLUME 92.8 fl (80-96); MEAN PLT VOLUME 9.2 fl (7.5-11.1); PLATELET COUNT 129 10^3/uL (134-434); RBC 2.86 M/mm3 (3.60-5.2); RDW 14.4 % (11.6-15.6)
[2023-07-09 09:20] LABS: INR 1.04 (0.83-1.09); PROTHROMBIN TIME (PATIENT) 12.1 SEC (9.7-13.0)
[2023-07-09 09:24] LABS: WHITE BLOOD COUNT 1.6 K/mm3 (4.0-10.0)
[2023-07-09 09:42] LABS: POTASSIUM 4.7 mmol/L (3.5-5.1)
[2023-07-09 09:56] LABS: CALCIUM 8.3 mg/dL (8.5-10.1)
[2023-07-09 09:57] LABS: BLOOD UREA NITROGEN 33.1 mg/dL (7-18); MAGNESIUM 2.5 mg/dL (1.8-2.4)
[2023-07-09 10:00] LABS: CREATININE 2.3 mg/dL (0.55-1.3)
[2023-07-09 10:01] LABS: BILIRUBIN,TOTAL 0.5 mg/dL (0.2-1)
[2023-07-09 10:54] LABS: ANISOCYTOSIS 0; HELMET CELLS 0; HOWELL-JOLLY BODIES 0; MACROCYTOSIS 0; OVALOCYTE 0; ROULEAU 0; SICKELED CELLS 0; TARGET CELLS 0; TEAR DROP CELLS 0; TOXIC GRANULATION 0
[2023-07-09] MEDS: THIAMINE HCL 100 MG TABLET (FP) PO SCH (11:11)
[2023-07-09] MEDS: FOLIC ACID 1 MG TABLET (FP) PO SCH (11:12)
[2023-07-09] MEDS: POLYETHYLENE GLYCOL (HEALTHYLAX) 3350 17 GM PACKET PO SCH ×2 (11:12→22:44)
[2023-07-09] MEDS: HEPARIN NA (PORCINE) 5,000 UNITS/ML 1ML VIAL SQ SCH ×2 (11:12→22:44)
[2023-07-09] MEDS: DOLUTEGRAVIR SODIUM 50 MG TABLET (NON-FORMULARY) PO SCH (11:12)
[2023-07-09] MEDS: amLODIPine BESYLATE 10 MG TABLET (FP) PO SCH (11:12)
[2023-07-09 14:59] VITALS: BMI 16.6
[2023-07-09] MEDS: QUEtiapine FUMARATE 100 MG TABLET (FP) PO SCH (22:42)
[2023-07-09] MEDS: FAMOTIDINE 10 MG TABLET PO SCH (22:43)
[2023-07-09] MEDS: MELATONIN 5 MG TABLETS PO SCH (22:44)
[2023-07-10] MEDS: methaDONE HCL 40 MG DISPERSABLE TABLET PO SCH (06:39)
[2023-07-10 08:29] LABS: BASO % 0.6 % (0-2.0); EOS % 1.6 % (0-4.5); HEMATOCRIT 26.8 % (32.4-45.2); HEMOGLOBIN 8.8 GM/dL (10.7-15.3); LYMPH % 9.1 % (8-40); MCH 30.7 pg (25.7-33.7); MEAN PLT VOLUME 9.8 fl (7.5-11.1); MONO % 14.6 % (3.8-10.2); NEUT % 74.1 % (42.8-82.8); PLATELET COUNT 121 10^3/uL (134-434); RBC 2.88 M/mm3 (3.60-5.2); RDW 14.2 % (11.6-15.6); WHITE BLOOD COUNT 3.4 K/mm3 (4.0-10.0)
[2023-07-10 08:42] LABS: BLOOD UREA NITROGEN 39.3 mg/dL (7-18); CALCIUM 8.2 mg/dL (8.5-10.1)
[2023-07-10] MEDS: RITONAVIR 100 MG TABLET PO SCH (08:43)
[2023-07-10] MEDS: DARUNAVIR ETHANOLATE 800 MG TAB PO SCH (08:43)
[2023-07-10] MEDS: FERROUS SO4 325 MG TABLET (FP) PO SCH ×3 (08:43→17:54)
[2023-07-10] MEDS: ATOVAQUONE 750 MG/5 ML (UNIT-DOSE PACKAGING) PO SCH (08:44)
[2023-07-10 08:45] LABS: CREATININE 2.6 mg/dL (0.55-1.3)
[2023-07-10 08:47] LABS: BILIRUBIN,TOTAL 0.2 mg/dL (0.2-1); TOT PROT 6.8 g/dl (6.4-8.2)
[2023-07-10] MEDS: THIAMINE HCL 100 MG TABLET (FP) PO SCH (10:00)
[2023-07-10] MEDS: amLODIPine BESYLATE 10 MG TABLET (FP) PO SCH (10:00)
[2023-07-10] MEDS: HEPARIN NA (PORCINE) 5,000 UNITS/ML 1ML VIAL SQ SCH ×2 (10:00→23:10)
[2023-07-10] MEDS: FOLIC ACID 1 MG TABLET (FP) PO SCH (10:00)
[2023-07-10] MEDS: DOLUTEGRAVIR SODIUM 50 MG TABLET (NON-FORMULARY) PO SCH (10:01)
[2023-07-10] MEDS: POLYETHYLENE GLYCOL (HEALTHYLAX) 3350 17 GM PACKET PO SCH ×2 (10:01→23:10)
[2023-07-10] MEDS ORDERED: SODIUM CHLORIDE 0.45% 1,000 ML IV SCH (15:00)
[2023-07-10] MEDS: QUEtiapine FUMARATE 100 MG TABLET (FP) PO SCH (23:07)
[2023-07-10] MEDS: MELATONIN 5 MG TABLETS PO SCH (23:10)
[2023-07-10] MEDS: FAMOTIDINE 10 MG TABLET PO SCH (23:10)
[2023-07-10 23:56] VITALS: RESP 18
[2023-07-11] MEDS: methaDONE HCL 40 MG DISPERSABLE TABLET PO SCH (05:51)
[2023-07-11 08:10] LABS: HEMATOCRIT 24.4 % (32.4-45.2); HEMOGLOBIN 8.3 GM/dL (10.7-15.3); MCHC 33.9 g/dl (32.0-36.0); MEAN CELL VOLUME 91.4 fl (80-96); MEAN PLT VOLUME 9.9 fl (7.5-11.1); PLATELET COUNT 118 10^3/uL (134-434); RBC 2.67 M/mm3 (3.60-5.2); RDW 14.4 % (11.6-15.6); WHITE BLOOD COUNT 2.1 K/mm3 (4.0-10.0)
[2023-07-11] MEDS: DARUNAVIR ETHANOLATE 800 MG TAB PO SCH (08:24)
[2023-07-11] MEDS: FERROUS SO4 325 MG TABLET (FP) PO SCH ×3 (08:24→17:44)
[2023-07-11] MEDS: RITONAVIR 100 MG TABLET PO SCH (08:24)
[2023-07-11] MEDS: ATOVAQUONE 750 MG/5 ML (UNIT-DOSE PACKAGING) PO SCH (08:24)
[2023-07-11 08:45] LABS: BLOOD UREA NITROGEN 43.4 mg/dL (7-18)
[2023-07-11 08:48] LABS: CREATININE 2.5 mg/dL (0.55-1.3)
[2023-07-11 08:49] LABS: BILIRUBIN,TOTAL 0.5 mg/dL (0.2-1); TOT PROT 6.6 g/dl (6.4-8.2)
[2023-07-11 09:01] LABS: ANISOCYTOSIS 2+; MACROCYTOSIS 0; OVALOCYTE 1+; TARGET CELLS 1+
[2023-07-11] MEDS: DOLUTEGRAVIR SODIUM 50 MG TABLET (NON-FORMULARY) PO SCH (09:31)
[2023-07-11] MEDS: FOLIC ACID 1 MG TABLET (FP) PO SCH (09:31)
[2023-07-11] MEDS: THIAMINE HCL 100 MG TABLET (FP) PO SCH (09:31)
[2023-07-11] MEDS: amLODIPine BESYLATE 10 MG TABLET (FP) PO SCH (09:31)
[2023-07-11] MEDS: HEPARIN NA (PORCINE) 5,000 UNITS/ML 1ML VIAL SQ SCH ×2 (09:32→21:56)
[2023-07-11] MEDS: POLYETHYLENE GLYCOL (HEALTHYLAX) 3350 17 GM PACKET PO SCH ×2 (09:32→21:56)
[2023-07-11] MEDS: QUEtiapine FUMARATE 100 MG TABLET (FP) PO SCH (21:56)
[2023-07-11] MEDS: MELATONIN 5 MG TABLETS PO SCH (21:56)
[2023-07-11] MEDS: FAMOTIDINE 10 MG TABLET PO SCH (21:56)
[2023-07-12] MEDS: methaDONE HCL 40 MG DISPERSABLE TABLET PO SCH (05:47)
[2023-07-12] MEDS: FERROUS SO4 325 MG TABLET (FP) PO SCH ×2 (09:16→11:48)
[2023-07-12] MEDS: FOLIC ACID 1 MG TABLET (FP) PO SCH (09:16)
[2023-07-12] MEDS: THIAMINE HCL 100 MG TABLET (FP) PO SCH (09:18)
[2023-07-12] MEDS: ATOVAQUONE 750 MG/5 ML (UNIT-DOSE PACKAGING) PO SCH (09:18)
[2023-07-12] MEDS: RITONAVIR 100 MG TABLET PO SCH (09:19)
[2023-07-12] MEDS: DARUNAVIR ETHANOLATE 800 MG TAB PO SCH (09:19)
[2023-07-12] MEDS: POLYETHYLENE GLYCOL (HEALTHYLAX) 3350 17 GM PACKET PO SCH (09:19)
[2023-07-12] MEDS: DOLUTEGRAVIR SODIUM 50 MG TABLET (NON-FORMULARY) PO SCH (09:19)
[2023-07-12] MEDS: HEPARIN NA (PORCINE) 5,000 UNITS/ML 1ML VIAL SQ SCH (09:19)
[2023-07-12] MEDS: amLODIPine BESYLATE 10 MG TABLET (FP) PO SCH (09:20)
[2023-07-12 16:25] VITALS: BP 106/58; PULSE 78; TEMP 98.1
== END 2023-07-12 16:46 | disposition home or self-care (01) | DRG 892 ==
LOC: JER 16:36 → JERBED 21:39 → INTOOBSV 21:39 → J4W 07-01 05:51 → OBSVTOIN 07-01 08:19 → J5S 07-02 19:56 → J8W 07-06 17:43
PROVIDERS: ADMIT Internal Medicine; ATTEND Nurse Practitioner Family
PROC: 0FB03ZX Excision of Liver, Percutaneous Approach, Diagnostic (ICD-10-PCS; principal; 2023-07-09)
DX: N17.9 Acute kidney failure, unspecified (principal); D37.6 Neoplasm of uncertain behavior of liver, gallbladder and bile ducts; C78.89 Secondary malignant neoplasm of other digestive organs; B20 Human immunodeficiency virus [HIV] disease; E43 Unspecified severe protein-calorie malnutrition; F11.20 Opioid dependence, uncomplicated; F14.10 Cocaine abuse, uncomplicated; K86.89 Other specified diseases of pancreas; R63.4 Abnormal weight loss; Z68.1 Body mass index [BMI] 19.9 or less, adult; E86.0 Dehydration; R73.9 Hyperglycemia, unspecified; R80.8 Other proteinuria; D64.9 Anemia, unspecified; I12.9 Hypertensive chronic kidney disease with stage 1 through stage 4 chronic kidney disease, or unspecified chronic kidney disease; N18.9 Chronic kidney disease, unspecified; F41.8 Other specified anxiety disorders; F31.9 Bipolar disorder, unspecified; E78.5 Hyperlipidemia, unspecified; D73.89 Other diseases of spleen
CPT/HCPCS: 0241U-QW; 36415; 36430; 47000; 71046-TC-FY; 71250-TC; 74181-TC; 76700-TC; 76775-TC; 77012-TC; 80053; 81003; 81025; 82105; 82378; 82550; 82570; 82607; 82728; 82746; 82962; 83010; 83036; 83540; 83550; 83605; 83615; 83735; 83880; 83935; 84100; 84132; 84300; 84466; 84484; 84702; 85025; 85027; 85045; 85610; 86140; 86301; 86304; 86359; 86360; 86480; 86593; 86704; 86705; 86707; 86708; 86780; 86803; 86850; 86900; 86901; 86922; 87086; 87340; 87350; 87449; 87517; 87522; 87536; 88307-TC; 88341-TC; 93005; 93010; 99285-25; G0378; J1644; P9058